=== PATIENT | male | born 1975 | race Caucasian/White ===

== ENCOUNTER 2021-12-03 15:53 | Outpatient (CLI) | payer OTHER, SELFPAY ==
--- OUTSIDE RECORDS SUMMARY | 2021-12-03 15:58 | XMS_ITS | Encounter Summary ---
:1975 Author Organization [facility] Address [address] [place] [address] Care Team Providers Name Role Phone Jerrell Beckwith MD Primary Care Provider Unavailable Reason for Visit Reason Comments Routine Eye Exam PRISCILA 08/29 . Patient states reading and things up close is alittle more blurry. Patient states comfort is good. Patient is aware that [id number] is discon tinued in August. Would like a refit. Contact Lens $50 Encounter Details Date Type Department Care Team Description 02/04/2011 Office Visit [facility] Fredis Houston, Examination of eyes and visi on (Primary Dx); [address] OD Myopia; [place] [address] Astigmatism, unspecified [phone] Social History Tobacco Use Types Packs/Day Years Used Date Smoking Tobacco: Former Cigarettes 1 5 Quit : 07/21/1997 Smokeless Tobacco: Never Alcohol Use Standard Drinks/Week Comments Yes 0 (1 standard drink = 0.6 oz pure alcoho l) on occasion Sex Assigned at Date Recorded Not on file documented as of this encounter Progress Notes Fredis Houston, OD - 02/04/2011 8:41 AM CST HPI Chief Complaint Patient presents with ??? Routine Eye Exam PRISCILA 08/29 . Patient states reading and things up close is alittle more blurry. Patient states comfort is good. Patient is aware that [id number] is discontinued in August. Would like a refit. ??? Contact Lens $50 History Reviewed Assessment Myopia, astifmatism Plan Spectacle Prescription given. No contact lens order today. Patient may purchase contacts elsewhere Return to clinic in 2 year(s) for a contact lens evaluation and a full exam. Fredis Houston, BREN ERY CLERK CHECKING documented in this encounter Plan of Treatment Not on filedocumented as of this encounter Visit Diagnoses Diagnosis Examination of eyes and vision - Primary Myopia Astigmatism, unspecified documented in this encounter Care Teams Open Hearth Furnace Laborer Relationship Specialty Start Date End Date Jerrell Beckwith MD PCP - General 08/27/09 1 documented as of this encounter
--- OUTSIDE RECORDS SUMMARY | 2021-12-03 15:58 | XMS_ITS | Encounter Summary ---
:1975 Author Organization [facility] Address [address] [place] [address] Care Team Providers Name Role Phone Unassigned, Provider Primary Care Provider Unavailable Reason for Visit Reason Onset Date Comments LAB RESULTS 04/16/2007 Encounter Details Date Type Department Care Team Description 04/16/2007 Telephone Careline Lang Avilez CURRENCY COUNTER RESULTS [address] [place], [place] [address] Social History Tobacco Use Types Packs/Day Years Used Date Smoking Tobacco: Former Cigarettes 1 5 Quit : 07/21/1997 Alcohol Use Standard Drinks/Week Comments Yes 0 (1 standard drink = 0.6 oz pure alcoho l) on occasion Sex Assigned at Date Recorded Not on file documented as of this encounter Nursing Notes Lang Avilez - 04/16/2007 4:17 PM CST Pt calling for mumps results. Nothing available in chart yet. Will call to clinic tomorrow. Lang Avilez RN RONMENTAL HEALTH AIDE documented in this encounter Plan of Treatment Not on filedocumented as of this encounter Visit Diagnoses Not on filedocumented in this encounter Care Teams Public Health Sanitarian Relationship Specialty Start Date End Date Unassigned, Provider PCP - General 02/11/06 08/26/[address] [place] [id number] documented as of this encounter
--- OUTSIDE RECORDS SUMMARY | 2021-12-03 15:58 | XMS_ITS | Encounter Summary ---
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 [address] [place] [address] Social History Tobacco Use Types Packs/Day Years Used Date Smoking Tobacco: Former Cigarettes 1 5 Quit : 07/21/1997 Alcohol Use Standard Drinks/Week Comments Yes 0 (1 standard drink = 0.6 oz pure alcoho l) on occasion Sex Assigned at Date Recorded Not on file documented as of this encounter Last Filed Vital Signs Vital Sign Reading Time Taken Comments Blood Pressure 124/80 09/05/2009 2:25 PM CDT Pulse 90 09/05/2009 2:25 PM CDT Temperature 36.4 ??C (97.6 ??F) 09/05/2009 2:25 PM CDT Respiratory Rate 16 09/05/2009 2:25 PM CDT Oxygen Saturation - - Inhaled Oxygen Concentration - - Weight 151.5 kg (334 lb) 09/05/2009 2:25 PM CDT Height 180.3 cm (5' 11) 09/05/2009 2:25 PM CDT Body Mass Index 46.58 09/05/2009 2:25 PM CDT documented in this encounter Progress Notes Jerrell Beckwith - 09/05/2009 3:01 PM CDT SUBJECTIVE: This patient presents for RHM. Concerns: 34-year-old man comes in for routine health maintenance. He is having no concerns. Past Medical History Diagnosis Date ??? Benign Neoplasm of Skin, Site Unspecified No current outpatient prescriptions on file. Allergies as of 09/05/2009 ??? (No Known Allergies) Past Surgical History Procedure Date ??? Appendectomy 1990 Family History Problem Relation ??? Alcohol/Drug Abuse Father ??? Cataract Maternal Grandmother ??? Diabetes, Type II Maternal Grandfather ??? Glaucoma Mother ??? Obesity Mother History Social History ??? Marital Status: Spouse Name: N/A Number of Children: N/A ??? Years of Education: N/A Occupational History ??? [employer] Social History Main Topics ??? Tobacco Use: Quit -- 1.0 packs/day for 5 years Quit date: 07/21/1997 ??? Alcohol Use: Yes on occasion ??? Drug Use: No marijuana ??? Sexually Active: Yes -- Female partner(s) Other Topics Concern ??? No ??? Blood Transfusions No ??? Caffeine No 2 servings/day ??? Occupational Exposure No ??? Hobby Hazard No ??? Sleep Concern No ??? Stress Concern No ??? Weight Concern Yes ??? Diet No ??? Back Care No ??? Exercise Yes play organized sports ??? Seat Belt Yes ??? Self Exams No Social History Narrative cholesterol:12 Review of Systems Skin: negative Eyes: glasses or contacts Ears/Nose/Throat: negative Respiratory: negative Cardiovascular: negative Gastrointestinal: negative Genitourinary: negative Musculoskeletal: negative Neurologic: negative Psychiatric: negative Hematologic/Lymphatic/Immunologic: negative Endocrine: negative CHOLESTEROL (mg/dl) Date Value 09/02/09 8:00 AM 209* HDL (mg/dl) Date Value 09/02/09 8:00 AM 37* LDL, CALC. (mg/dl) Date Value 09/02/09 8:00 AM 134* TRIGLYCERIDE (mg/dl) Date Value 09/02/09 8:00 AM 189* 01/26/1999 210 * OBJECTIVE: General appearance - stated age, healthy, alert, in no distress BP 124/80 Pulse 90 Temp(Src) 97.6 ??F (36.4 ??C) (Oral) Resp 16 Ht 5' 11 (1.803 m) Wt 334lb (151.501 kg) Skin: Skin color, texture, turgor normal. No rashes or lesions. Lymph Nodes: WNL Head: Normocephalic. No masses, lesions, tenderness or abnormalities Eyes: conjunctivae/corneas clear. PERRL, EOM's intact. Fundi benign Ears: External ears normal. Canals clear. TM's normal. Nose: negative Throat: Lips, mucosa, and tongue normal. Teeth and gums normal. Neck: Neck supple. No adenopathy. Thyroid symmetric, normal size. Heart: PMI normal. No lifts, heaves, or thrills. RRR. No murmurs, clicks or rubs Peripheral pulses: negative Lungs: Clear to auscultation without rales or rhonchi Breasts: negative Abdomen: Abdomen soft, non-tender without masses or organomegaly Back: Back symmetric, no curvature. ROM normal. No CVA tenderness. Extremities: Extremities normal. No deformities, edema, or skin discoloration Neurologic: Gait normal. Reflexes normal and symmetric. Sensation grossly intact. Genitalia: Normal male genitalia No inguinal hernia. Assessment: 1. Routine Health Maintenance 2. morbid obesity PLAN: See Orders and/or Patient instructions We talked about a low cholesterol diet as his numbers are slightly elevated. I encouraged dietary discretion and weight loss Jerrell Beckwith MD documented in this encounter Plan of Treatment Not on filedocumented as of this encounter Visit Diagnoses Diagnosis Routine general medical examination at [facility] facility - Primary Routine general medical examination at [facility] Obesity, morbid ([facility]) Morbid obesity documented in this encounter Care Teams Agency Service Representative Relationship Specialty Start Date End Date Jerrell Beckwith MD PCP - General 08/27/09 1 documented as of this encounter
--- OUTSIDE RECORDS SUMMARY | 2021-12-03 15:58 | XMS_ITS | Encounter Summary ---
:1975 Author Organization [facility] Address [address] [place] [address] Care Team Providers Name Role Phone Unassigned, Provider Primary Care Provider Unavailable Reason for Visit Reason Comments INGROWN NAIL Right 1st ingrown toenail Encounter Details Date Type Department Care Team Description 05/13/2009 [facility] Visit [facility] Paredes Nail (Primary Dx); [facility] DP M Pain in Soft Tissues of Limb Surgery [address] [place] [phone] Social History Tobacco Use Types Packs/Day Years Used Date Smoking Tobacco: Former Cigarettes 1 5 Quit : 07/21/1997 Alcohol Use Standard Drinks/Week Comments Yes 0 (1 standard drink = 0.6 oz pure alcoho l) on occasion Sex Assigned at Date Recorded Not on file documented as of this encounter Last Filed Vital Signs Vital Sign Reading Time Taken Comments Blood Pressure 144/99 05/13/2009 2:35 PM CDT Pulse 98 05/13/2009 2:35 PM CDT Temperature 36.6 ??C (97.8 ??F) 05/13/2009 2:35 PM CDT Respiratory Rate - - Oxygen Saturation - - Inhaled Oxygen Concentration - - Weight - - Height - - Body Mass Index - - documented in this encounter Patient Instructions Patient InstructionsLaStephanie aaron CMA - 05/13/2009 2:55 PM CDT INGROWN TOENAIL POSTOPERATIVE INSTRUCTIONS (Nail avulsion or chemical matrixectomy) Go directly home and elevate the affected foot on one or two pillows for the remainder of the day/evening. Your toe may stay numb for the next 2-8 hours. Take Tylenol, ibuprofen or another anti-inflammatory as needed for pain. Take antibiotic if that has been prescribed. Take the entire prescribed antibiotic even if your symptoms have improved. Keep dressing dry and intact the day of the procedure. The morning after the procedure, remove entire dressing and soak/wash the affected area in warm water (you may add Epsom salt) for 5 to 10 minutes. Do this twice a day (you may count showering/bathing as one soak). After soaks, pat the area dry and then allow to air-dry for a few minutes. Apply (antibiotic ointment - betadine - amerigel - nothing) to the area and cover with 2 X 2 gauze and paper tape. Do not use Band-Aids. May walk and pursue everyday activities as tolerated with either an open toe shoe or cut-out shoe asneeded. May wear regular shoes if no pain is noted. Watch for any signs and symptoms of infection such as: redness, red streaks going up the foot/leg, swelling, pus or foul odor. If you have any problems or questions, please call the foot and ankle / podiatry department. For more information on your condition, please visit these accredited websites: [employer] http://www.acfas.org [employer] http://www.apma.org/ documented in this encounter Progress Notes Stephanie Flores CMA - 05/13/2009 3:49 PM CDT Addended by: STEPHANIE CARPENTER on: 05/13/2009 Modules accepted: Orders Rg Paredes - 05/13/2009 3:39 PM CDT HPI: The patient is a 34-year-old gentleman who presents to the podiatry clinic complaining of an ingrowntoenail on the lateral border of the right big toe. Problem is been going on three or four years(2005) on and off. Describes the pain as sharp and throbbing. Rates pain 4/10. Pain is worse when he stubs it. Pain lasts a few minutes. He is tried cleaning the area with alcohol and triple antibiotic ointment. The patient's allergies, medications, past medical history, past surgical history, family medical history and social history have been reviewed. Appendectomy. He does not smoke tobacco or use recreational drugs. Couple of alcoholic drinks per week. Exercising by doing pushups sit-ups on and off over the years. He plays with his kids for exercise. The patient's 10 point review of systems was negative for fever, night sweats, chills, nausea, vomiting, blurry vision, double vision, dizziness, decreased appetite, ringing in ears, bloody nose, hoarseness, chest pain, shortness of breath, swelling, coughing, wheezing, abdominal pain, painful breathing, numbness, diarrhea, constipation, painful urination, urgency to urinate, incontinence, tingling, weakness, fatigue, knee pain, hip pain, back pain, rashes, abrasions, lacerations, bruising and unintentional weight loss. PHYSICAL EXAM: Patient was alert and oriented x3. His very pleasant and in no apparent distress. He is overweight but appeared well. DP and PT pulses were palpable bilaterally. Skin temperature is warm to warm proximal to distal. Skin texture and turgor were good bilaterally. Light touch sensation was intact bilaterally. Strength and range of motion within normal limits and equal bilaterally. Hyperkeratotic lesionsand cracking of the skin plantar aspect bilateral feet. Upon aspect of the lateral border of the right hallux toenail, the nail is incurvated and ingrowing into the skin. There is pain with palpation. There is dry drainage. There is mild erythema and trace edema. No malodor, no pus. Filed Vitals: 05/13/2009 2:35 PM BP: 144/99 Pulse: 98 Temp: 97.8 ??F (36.6 ??C) TempSrc: Oral PainSc: Four (4) ASSESSMENT: #1. Onychocryptosis lateral border right hallux #2. Diffuse hyperkeratosis plantar aspect bilateral feet PLAN: 1. The clinical findings were discussed in detail with the patient as well as the etiology, prognosis and treatment options. Recommendations at this time are for a partial chemical matrixectomy on the lateral border right hallux. The patient does have a chronic history of ingrown toenails, so do feel a chemical matrixectomy is needed at this time. 2. Patient agreed with the treatment recommendation, therefore the right hallux was anesthetized using equal parts 2% lidocaine plain mixed with .5% bupivicaine plain for a total of 6 cc's. The right hallux was prepped with betadine and using a small spatula, the lateral border right hallux toenail was freed from the surrounding skin and nail bed and then an burundian anvil was used to split the toenail, a straight hemostat was then clamped to the offending toenail and it was removed in toto. The areawas then inspected and found to be free of any remaining nail spicule. Phenol was then applied with cotton-tip applicators, 3 applications for 30 seconds each and then toe was flushed with alcohol. Thetoe was then dressed with silvadene cream, xerform gauze, 2 x 2 gauze and a coban wrap. 3. The patient tolerated the procedure well and was given both written and verbal instructions including but not limited to: keeping the dressing on for the remainder of today and then removing the dressing tomorrow morning and beginning 5 minute soaks once per day for the next 2 weeks. They should cover the toe with a small amount of antibiotic ointment and gauze for the next 2 weeks. Do not use band-aids as this will keep it too moist. The patient should monitor the toe for signs of infection suchas redness, swelling, pus or odor or if they experience fever, chills, nausea or vomiting. If they should notice any of the above, they should return to clinic right away. The patient may wear closed-toe shoes as tolerated. The patient should try to elevate the foot when seated and may take over the counter tylenol as needed if they experience pain. 4. The patient will return to clinic in 2 weeks. The patient voiced understanding of the above recommendations and had their questions answered. documented in this encounter Plan of Treatment Not on filedocumented as of this encounter Visit Diagnoses Diagnosis Ingrowing nail - Primary Pain in limb documented in this encounter Care Teams Qualification Engineer Relationship Specialty Start Date End Date Unassigned, Provider PCP - General 02/11/06 08/26/09 [address] [place] [address] documented as of this encounter
--- OUTSIDE RECORDS SUMMARY | 2021-12-03 15:58 | XMS_ITS | Encounter Summary ---
:1975 [facility] Address [address] [place] [address] Care Team Providers Name Role Phone Jerrell Shoemaker MD Primary Care Provider Unavailable Reason for Visit Reason Onset Date Comments RESULTS, TEST 01/31/2013 Encounter Details Date Type Department Care Team Description 01/31/2013 Telephone [facility] Khushbu Ansari LPN RESULTS, TEST Practice [facility] [address] [address] [id number] (work) [phone] Social History Tobacco Use Types Packs/Day Years Used Date Smoking Tobacco: Former Cigarettes 1 5 Quit : 07/21/1997 Smokeless Tobacco: Never Alcohol Use Standard Drinks/Week Comments Yes 0 (1 standard drink = 0.6 oz pure alcoho l) on occasion Sex Assigned at Date Recorded Not on file documented as of this encounter Nursing Notes Khushbu Burns LPN - 01/31/2013 10:06 AM CST Contacted as per provider instructions.Results were also [facility] NG IN LINE FEEDER Khushbu Burns LPN - 01/31/2013 10:06 AM CST Message copied by KHUSHBU BURNS on TueJan 31, 2013 10:06 AM ------ Message from: JERRELL SHOEMAKER Created: TueJan 30, 2013 5:21 PM Your Vitamin D level is low. Supplementing the Vitamin D may increase your energy level. I would like you to take 05509 units of vitamin D once a week for 12 weeks. We can recheck your level after that. Other results look fine. ------ NG IN LINE FEEDER documented in this encounter Plan of Treatment Not on filedocumented as of this encounter Visit Diagnoses Not on filedocumented in this encounter Care Teams Formulator Relationship Specialty Start Date End Date Jerrell Shoemaker MD PCP - General 08/27/09 1 documented as of this encounter
--- OUTSIDE RECORDS SUMMARY | 2021-12-03 15:58 | XMS_ITS | Encounter Summary ---
:1975 Author [facility] Address [address] [place] [address] Care Team Providers Name Role Phone Jerrell Beckwith MD Primary Care Provider Unavailable Reason for Visit Reason Onset Date Comments Ear Pain 08/18/2010 Encounter Details Date Type Department Care Team Description 08/18/2010 Telephone Careline Alicia Carlos RN Ear Pain [address] [place], [place] [address] [phone] [place] [address] Social History Tobacco Use Types Packs/Day Years Used Date Smoking Tobacco: Former Cigarettes 1 5 Quit : 07/21/1997 Smokeless Tobacco: Never Alcohol Use Standard Drinks/Week Comments Yes 0 (1 standard drink = 0.6 oz pure alcoho l) on occasion Sex Assigned at Date Recorded Not on file documented as of this encounter Nursing Notes Peggy Carpio RN - 08/18/2010 10:03 AM CDT Returned call to pt Had stuffiness in the ears last week when he had a cold Today started with right ear pain No drainage, fever, external swelling or redness No hx of wax impaction Had some improvement with Ibuprofen this morning but ear is still painful TRIAGE REFERENCE: EAR PAIN - ADULT CNG (c) 2009 STAT SYMPTOMS: none PMH: Patient Active Problem List Diagnoses Code ??? Obesity, Morbid 278.01C CURRENT MEDICATIONS: No current outpatient prescriptions on file. MEDICATION ALLERGIES: No Known Allergies HOME TREATMENT: OTC pain meds PRN - follow package dosage guidelines Cold compress for 20min out of an hour PRN Don't insert anything into the ears - no Qtips or other objects Don't flush with ears water or any other fluids PLAN: Advised clinic appt for eval. Also discussed UC as option for eval if no clinic appts available. Reviewed home treatments described above. Encouraged to call back anytime with any questions, concerns, changes in symptoms. Pt/caller verbalized understanding of recommendations, denies further questions and is agreeable to plan. Call transferred to appt ctr. Peggy Carpio RN Alicia Carlos RN - 08/18/2010 10:00 AM CDT Pt calling, would like to speak to a nurse about his Right ear before making an appt. A nurse will call you back within the next hour. If you have not heard from a nurse, please feel free to call us back at [phone] and state that you are waiting for a callback. documented in this encounter Plan of Treatment Not on filedocumented as of this encounter Visit Diagnoses Not on filedocumented in this encounter Care Teams Data Entry Clerk Relationship Specialty Start Date End Date Jerrell Beckwith MD PCP - General 08/27/09 1 documented as of this encounter
--- OUTSIDE RECORDS SUMMARY | 2021-12-03 15:58 | XMS_ITS | Encounter Summary ---
:1975 Author Organization [facility] Address [address] [place] [address] Care Team Providers Name Role Phone Jerrell Beckwith MD Primary Care Provider Unavailable Reason for Visit Reason Comments NUMBNESS TINGLING SWELLING, FACE Encounter Details Date Type Department Care Team Description 01/12/2019 Nurse Triage Careline Unassigned, NUMBNESS; [place]; [address] Provider SWELLING, [place], [place] [address] [place] [address] [place] [address] Social History Tobacco Use Types Packs/Day Years Used Date Smoking Tobacco: Former Cigarettes 1 5 Quit : 07/21/1997 Smokeless Tobacco: Never Alcohol Use Standard Drinks/Week Comments Yes 0 (1 standard drink = 0.6 oz pure alcoho l) on occasion Sex Assigned at Date Recorded Not on file documented as of this encounter Nursing Notes Janet Vick RN - 01/12/2019 2:31 PM CST Reason for Disposition ??? [1] Numbness (i.e., loss of sensation) of the face, arm / hand, or leg / foot on one side of thebody AND [2] sudden onset AND [3] brief (now gone) Protocols used: NEUROLOGIC [id number] ESTATE TEACHER Janet Vick RN - 01/12/2019 2:25 PM CST direct transfer from medical receptionist medical assistant Verified patient by first and last name and date of , as well as phone Concern:Pt states a few weeks ago, observed numbness in left cheek and near left ear, left arm/elbow became worse, and observed spots on shoulders pt denies weakness pt denies drooping of face spouse states left side of face is swelled normal skin tone spouse denies confusion, slurred speech PT states intermittent -- pt states is more intense now compared to 1 wk ago pt states lasts a few minutes Pt states when finished urinating, feels like is dribbling after finished. Pt denies pain with urination PMH: Patient Active Problem List Diagnosis ??? Vitamin D deficiency (HR) ESTATE TEACHER Agustina Santamaria - 01/12/2019 2:23 PM CST Verified patient identity using three identifiers: Yes Caller's relationship to patient: Self At which care system or clinic is the patient normally seen? Other (Clinic Name) [facility] Symptoms Describe the reason for call/symptoms (include location and duration if applicable): Left side of face numbness and Tingling, some in elbow and fingertips. Face looks a little swollen on left side. Plan:Caller transferred directly to CareLine nurse. ESTATE TEACHER documented in this encounter Plan of Treatment Not on filedocumented as of this encounter Visit Diagnoses Not on filedocumented in this encounter Care Teams Wheel Tuner Relationship Specialty Start Date End Date Jerrell Beckwith MD PCP - General 08/27/09 1 documented as of this encounter
--- OUTSIDE RECORDS SUMMARY | 2021-12-03 15:58 | XMS_ITS | Encounter Summary ---
:1975 Author Organization [facility] Address [address] [place] [address] Care Team Providers Name Role Phone Jerrell Beckwith MD Primary Care Provider Unavailable Reason for Visit Reason Comments EARACHE Cirilo CONGESTION, SINUS Encounter Details Date Type Department Care Team Description 08/18/2010 Office Visit [place] Ann Sharp MD Al lergic rhinitis (Primary Dx); Internal Medicine Impacted cerumen; [address] [place] [address] Social History Tobacco Use Types [...] Sign Reading Time Taken Comments Blood Pressure 140/92 08/18/2010 2:47 PM CDT Pulse 104 08/18/2010 2:47 PM CDT Temperature 37.1 ??C (98.7 ??F) 08/18/2010 2:47 PM CDT Respiratory Rate - - Oxygen Saturation - - Inhaled Oxygen Concentration - - Weight 154.2 kg (340 lb) 08/18/2010 2:47 PM CDT Height 180.3 cm (5' 11) 08/18/2010 2:47 PM CDT Body Mass Index 47.42 08/18/2010 2:47 PM CDT documented in this encounter Progress Notes Ann Sharp MD - 08/18/2010 3:05 PM CDT SUBJECTIVE: This 35-year-old man has had intermittent nasal congestion and some sneezing also spurring. He has been taking when necessary Claritin without much improvement. He occasionally notes coughing and wheezing as well but has never been diagnosed with hayfever or asthma. He is also putting on weight and this is resulted in his blood pressure raising. Today he rolled over in bed and felt some right ear pain. He had been to the [place] over the weekend and had been spending a lot of time in the water there. OBJECTIVE: BP 140/92 Pulse 104 Temp 98.7 ??F (37.1 ??C) Ht 5' 11 (1.803 m) Wt 340 lb (154.223 kg) BMI 47.42 kg/m2 Cooperative obese white male no acute distress. HEENT exam shows ear wax present on the right the was washed out. The canal itself is irritated. Neck exam is normal lungs are clear cardiac exam revealed S1-S2 without gallop or murmur. ASSESSMENT: Allergic rhinitis Earwax elevated blood pressure without diagnosis of hypertension Otitis externa. PLAN: Flonase nasal spray two puffs in each nostril daily. Cortisporin drops 3 times a day for five days for his right ear. Repeat blood pressure within the next couple months. I encouraged him to lose weight. documented in this encounter Nursing Notes 08/18/2010 2:40 PM CDT >> NARA Becker Aug 18, 2010 3:10 PM S Claudio Akhtar presents to have his ear(s) washed. States they have been using ear wax softening agent No. O Cerumen observed in right ear canal(s). A Ear assesment done by Ann Sharp M.D. before and after the ear wash. Cerumen impaction. (policy note: ear assessment must be done pre/post ear wash by RN or Provider.) P Ear wash ordered by provider Ann hSarp M.D. . Right ear lavaged with 240 mL of tap water. all of the cerumen was removed. Thelma Wooten LPN documented in this encounter Plan of Treatment Not on filedocumented as of this encounter Visit Diagnoses Diagnosis Allergic rhinitis - Primary Allergic rhinitis, cause unspecified Impacted cerumen Otitis externa Infective otitis externa, unspecified documented in this encounter Care Teams Automotive Technician Instructor Relationship Specialty Start Date End Date Jerrell Beckwith MD PCP - General 08/27/09 1 documented as of this encounter
--- OUTSIDE RECORDS SUMMARY | 2021-12-03 15:58 | XMS_ITS | Encounter Summary ---
:1975 Author Organization [facility] Address [address] [place] [address] Care Team Providers Name Role Phone Unassigned, Provider Primary Care Provider Unavailable Reason for Visit Reason Onset Date Comments LAB RESULTS 04/24/2007 Encounter Details Date Type Department Care Team Description 04/24/2007 Telephone Jarrell Family Unass igned, Provider LAB RESULTS Practice [address] [address] [place] [address] Social History Tobacco Use Types Packs/Day Years Used Date Smoking Tobacco: Former Cigarettes 1 5 Quit : 07/21/1997 Alcohol Use Standard Drinks/Week Comments Yes 0 (1 standard drink = 0.6 oz pure alcoho l) on occasion Sex Assigned at Date Recorded Not on file documented as of this encounter Nursing Notes Marcia Mcginnis - 04/24/2007 5:00 PM CST Virus culture report collected 04/14/07 indicates Influenza Type A. Claudio informed of this. He is feeling back to normal. 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
--- OUTSIDE RECORDS SUMMARY | 2021-12-03 15:58 | XMS_ITS | Encounter Summary ---
:1975 Author Organization [facility] Address [address] [place] [address] Care Team Providers Name Role Phone Jerrell Beckwith MD Primary Care Provider Unavailable Encounter Details Date Type Department Care Team Description 09/02/2009 Orders Only [place] Routine Physical Laboratory Examination [address] [place] [address] Social History Tobacco Use Types Packs/Day Years Used Date Smoking Tobacco: Former Cigarettes 1 5 Quit : 07/21/1997 Alcohol Use Standard Drinks/Week Comments Yes 0 (1 standard drink = 0.6 oz pure alcoho l) on occasion Sex Assigned at Date Recorded Not on file documented as of this encounter Progress Notes Jerrell Beckwith - 09/02/2009 1:50 PM CDT Quick Note: Your lipid panel results are all mildly elevated. I do follow a low cholesterol/low fat diet and stay physically active. documented in this encounter Plan of Treatment Not on filedocumented as of this encounter Procedures Procedure Name Priority Date/Time Associated Diagnosis Comme nts LIPID PANEL AND Routine 09/02/2009 8:00 AM Routine Physical Re sults for this DIRECT LDL(IF CDT Examination procedure are in NEEDED) the results section. documented in this encounter Results (ABNORMAL) LIPID PANEL AND DIRECT LDL(IF NEEDED) (09/02/2009 8:00 AM CDT) [facility] Method Time Signature Cholesterol 209 (H) 0 - 199 [facility] mg/dl Triglyceride 189 (H) 0 - 149 [facility] mg/dl HDL 37 (L) >40 mg/dl [facility] LDL, Calc. 134 (H) 0 - 129 [facility] mg/dl Hours Fasting 12 hours [facility] Specimen Anatomical Collection Method Collection Time Receive d Time (Source) Location / / Volume Laterality 09/02/2009 8:00 AM 0 8:04 CDT AM CDT Jerrell Beckwith MD LAB_1 Performing Organization Address City/State/ZIP Code Phon e Number [facility] [phone] [facility] [address] [phone] documented in this encounter Visit Diagnoses Diagnosis Routine physical examination Routine general medical examination at a health care facility documented in this encounter Care Teams Database Software Technician Relationship Specialty Start Date End Date Jerrell Beckwith MD PCP - General 08/27/09 1 documented as of this encounter
--- OUTSIDE RECORDS SUMMARY | 2021-12-03 15:58 | XMS_ITS | Clinical Summary ---
:1975 Author Organization [facility] Address [address] [place] [address] Care Team Providers Name Role Phone Unavailable Primary Care Provider Unavailable Source Comments You are receiving this document as you are listed as the primary care provider,follow-up provider, or the patient has been referred to you for consultation.This is in compliance with the Medicare and Medicaid EHR Incentive Program,which states Providers who transition their patient to another setting of careor provider of care or refers their patient to another provider of care shouldprovide summarycare record for each transition of care or referral. [facility] Allergies No known active allergies Medications Medication Sig Dispensed Refills Start Date End Date Status cholecalciferol (VITAMIN Take 2,000 0 Active D) 2000 UNITS tablet Units by mouth daily. Multiple 0 Active Vitamins-Minerals (ONE-A-DAY [facility] OR) Active Problems Problem Noted Date Vitamin D deficiency 01/30/2013 Immunizations Name Administration Dates Next Due Influenza IIV4 (Quadrivalent) 0.5mL 12/28/2016, 01/30/2013 (00703) Td 02/20/1993 Td (7+ yrs) 09/29/2004 Tdap 01/30/2013 Varicella 01/27/1999 (Deferred: Immune by Disease) Family History Medical History Relation Name Comments Alcohol/Drug Abuse Father Glaucoma Mother Pre-glaucoma Obesity Mother Bipolar Disorder Maternal Aunt Diabetes, Type II Maternal Grandfather Cataract Maternal Grandmother Relation Name Status Comments Father Alive BY-1957 Mother Alive BY-1957 Brother Alive BY-1986 Daughter Alive Maternal Aunt Maternal Grandfather Alive BY-s; AODM Maternal Grandmother Alive BY-1910's Paternal Grandfather Alive unknown Paternal Grandmother Alive Sister Alive BY-1984 Son Alive Social History Tobacco Use Types Packs/Day Years Used Date Smoking Tobacco: Former Cigarettes 1 5 Quit : 07/21/1997 Smokeless Tobacco: Never Alcohol Use Standard Drinks/Week Comments Yes 0 (1 standard drink = 0.6 oz pure alcoho l) on occasion Sex Assigned at Date Recorded Not on file Last Filed Vital Signs Vital Sign Reading Time Taken Comments Blood Pressure 144/98 12/28/2016 10:44 AM OCCUPATIONAL THERAPY INSTRUCTOR Pulse 77 12/28/2016 10:44 AM OCCUPATIONAL THERAPY INSTRUCTOR Temperature 36.6 ??C (97.9 ??F) 12/28/2016 10:44 AM OCCUPATIONAL THERAPY INSTRUCTOR Respiratory Rate 14 01/15/2014 10:13 AM OCCUPATIONAL THERAPY INSTRUCTOR Oxygen Saturation - - Inhaled Oxygen Concentration - - Weight 154 kg (339 lb 6.4 oz) 12/28/2016 10:44 AM OCCUPATIONAL THERAPY INSTRUCTOR Height 181.6 cm (5' 11.5) 12/28/2016 10:44 AM OCCUPATIONAL THERAPY INSTRUCTOR Body Mass Index 46.68 12/28/2016 10:44 AM OCCUPATIONAL THERAPY INSTRUCTOR Plan of Treatment Health Maintenance Due Date Last Done Comments Hep C Screening (Preventive 1975 Services) COVID-19 Vaccine (#1) 1975 HIV Screening (Preventive 1993 Services) Adult Preventive Visit 12/28/2018 12/28/2016, 01/30/2013, 09/05/2009, Additional history exists Influenza (#1) 2021 12/28/2016, 01/30/2013 Cholesterol 12/28/2021 12/28/2016, 01/30/2013, 09/02/2009, Additional history exists DTaP/Tdap/Td (3 - Tdap) 01/30/2023 01/30/2013, 09/29/2004, 02/20/1993 Zoster/Shingles (1 of 2) 05/11/2027 HPV Vaccine Aged Out No longer eligib le based on patient 's age to complete this topic HepA Aged Out No longer eligib le based on patient 's age to complete this topic Hib Aged Out No longer eligib le based on patient 's age to complete this topic IPV (Polio) Aged Out No longer eligib le based on patient 's age to complete this topic MCV4 Aged Out No longer eligib le based on patient 's age to complete this topic Pneumococcal Aged Out No longer eligib le based on patient 's age to complete this topic Insurance Payer Benefit Plan / Subscriber ID Effective Dates Phone Addre ss Type Group [facility] [employer] SELF INSURED [id number] 2013-Present Commercial 5 [id number] 200[address] (Home) W [phone] [place] (Work) [id number] Advance Directives Latest Code Status on File Code Status Date Activated Date Inactivated Comments 09/29/2004 3:51 PM 09/29/2004 3:51 PM
--- OUTSIDE RECORDS SUMMARY | 2021-12-03 15:58 | XMS_ITS | Encounter Summary ---
:1975 Author Organization [facility] Address [address] [place] [address] Care Team Providers Name Role Phone Jerrell Beckwith MD Primary Care Provider Unavailable Encounter Details Date Type Department Care Team Description 12/28/2016 Lab Visit [facility] Routine health maintenance [address] [place], [place] [address] Social History Tobacco Use Types Packs/Day Years Used Date Smoking Tobacco: Former Cigarettes 1 5 Quit : 07/21/1997 Smokeless Tobacco: Never Alcohol Use Standard Drinks/Week Comments Yes 0 (1 standard drink = 0.6 oz pure alcoho l) on occasion Sex Assigned at Date Recorded Not on file documented as of this encounter Plan of Treatment Not on filedocumented as of this encounter Procedures Procedure Name Priority Date/Time Associated Diagnosis Comme nts LIPID PANEL AND Routine 12/28/2016 11:13 AM Routine health Res ults for this DIRECT LDL(IF DESCRIPTIVE CATALOG LIBRARIAN maintenance procedure are in NEEDED) the results section. BASIC METABOLIC Routine 12/28/2016 11:13 AM Routine health Res ults for this PANEL DESCRIPTIVE CATALOG LIBRARIAN maintenance procedure are i n the results section. TSH, SENSITIVE Routine 12/28/2016 11:13 AM Routine health Resu lts for this (WITH REFLEX) DESCRIPTIVE CATALOG LIBRARIAN maintenance procedure are in the results section. documented in this encounter Results TSH, SENSITIVE with FT4, FT3 (if needed) (12/28/2016 11:13 AM DESCRIPTIVE CATALOG LIBRARIAN) P athologist Signature TSH, with 1.68 0.30 - [facility] 4.50 [facility] uIU/ml Specimen Anatomical Collection Method Collection Time Receive d Time (Source) Location / / Volume Laterality 12/28/2016:13 12/28/2016 AM DESCRIPTIVE CATALOG LIBRARIAN 11:14 AM DESCRIPTIVE CATALOG LIBRARIAN Narrative [facility] - 12/28/2016 4:[address] Performed at [address] ??[id number] Mirian Ayala MD LAB_1 Performing Organization Address [facility] Phon e Number [facility] [phone] Basic Metabolic Panel (12/28/2016 11:13 AM DESCRIPTIVE CATALOG LIBRARIAN) [facility] Signature Sodium 141 136 - 145 [facility] mmol/L [facility] Potassium 4.4 3.5 - 5.1 [facility] mmol/L [facility] Chloride 102 98 - 109 [facility] mmol/L [facility] CO2 28 20 - 29 [facility] mmol/L [facility] Anion Gap 11 7 - 16 [facility] (calc.) mmol/L [facility] Glucose 85 70 - 180 [facility] mg/dl [facility] Calcium 10.0 8.4 - 10.2 [facility] mg/dl [facility] BUN 14 7 - 26 [facility] mg/dl [facility] Creatinine 0.79 0.73 - [facility] 1.18 mg/dl [facility] GFR, Estimated >60 >60 [facility] ml/min/1.7 [facility] 3m2 GFR, Est., If >60 >60 [facility] Black ml/min/1.7 [facility] 3m2 Specimen Anatomical Collection Method Collection Time Receive d Time (Source) Location / / Volume Laterality 12/28/2016 11:13 12/28/2016 AM DESCRIPTIVE CATALOG LIBRARIAN 11:14 AM DESCRIPTIVE CATALOG LIBRARIAN Narrative [facility] - 12/28/2016 4:[address] Performed at [facility], [address] [place] [address] ??[id number] Mirian Ayala MD LAB_1 Performing Organization Address City/[facility] Phon e Number [facility] [phone] (ABNORMAL) Lipid Panel and Direct LDL(If Needed) (12/28/2016 11:13 AM DESCRIPTIVE CATALOG LIBRARIAN) [facility] Method Time Signature Hours Fasting 12 hours [facility] Cholesterol 218 (H) 0 - 199 [facility] mg/dl [facility] Triglyceride 162 (H) 0 - 149 [facility] mg/dl [facility] HDL 41 >40 mg/dl [facility] LDL, Calc. 145 (H) 0 - 129 [facility] mg/dl [facility] Non HDL Chol, 177 mg/dl [facility] Calc [facility] Specimen Anatomical Collection Method Collection Time Receive d Time (Source) Location / / Volume Laterality 12/28/2016 11:13 12/28/2016 AM DESCRIPTIVE CATALOG LIBRARIAN 11:14 AM DESCRIPTIVE CATALOG LIBRARIAN Narrative [facility] - 12/28/2016 4:[address] Performed at [facility], [address] [place] [address] ??[id number] Mirian Ayala MD LAB_1 Performing Organization Address City/State/ZIP Code Phon e Number [facility] [phone] documented in this encounter Visit Diagnoses Diagnosis Routine health maintenance Routine general medical examination at a health care facility documented in this encounter Care Teams Returned Goods Repairer Relationship Specialty Start Date End Date Jerrell Beckwith MD PCP - General 08/27/09 1 documented as of this encounter
--- OUTSIDE RECORDS SUMMARY | 2021-12-03 15:58 | XMS_ITS | Encounter Summary ---
:1975 Author Organization [facility] Address [address] [place] [address] Care Team Providers Name Role Phone Jerrell Beckwith MD Primary Care Provider Unavailable Reason for Referral Consult/Transfer Care (Routine) - Closed Specialty Diagnoses / Procedures Referred By Contact Refer red To Contact Diagnoses Decreased hearing, [place] [address] [place], [place] [address] Referral ID Status Reason Start Date Expiration Date Visits Requ ested Visits Authorized [id number] Closed 12/28/2016 03/29/2018 1 1 Scheduling Instructions Your provider has recommended an appoint ment with [facility]. You may call [phone] to schedule your appoi ntment. If you prefer, a recruiting scheduler will contact you within the next 3 business d ays to assist you in setting up this appointment. We suggest you call your [employer] company about your coverage and benefits for this appointment. Reason for Visit Reason Comments ROUTINE HEALTH MAINTENANCE DEPRESSION Encounter Details Date Type Department Care Team Description 12/28/[address] [facility] Mirian Ayala health maintenance (Primary Dx); Honey Tinajero MD Moderate single current episode of major depressive disorder (HRC); [address] [facility] [address] [facility] Snoring; [place], [place] Decreas ed hearing, unspecified laterality; [phone] [id number] Encounter for immunization [phone] Social History Tobacco Use Types Packs/Day Years [...] Comments Blood Pressure 144/98 12/28/2016 10:44 AM GM Pulse 77 12/28/2016 10:44 AM GM Temperature 36.6 ??C (97.9 ??F) 12/28/2016 10:44 AM GM Respiratory Rate - - Oxygen Saturation - - Inhaled Oxygen Concentration - - Weight 154 kg (339 lb 6.4 oz) 12/28/2016 10:44 AM GM Height 181.6 cm (5' 11.5) 12/28/2016 10:44 AM GM Body Mass Index 46.68 12/28/2016 10:44 AM GM documented in this encounter Progress Notes Mirian Ayala MD - 12/28/2016 10:40 AM CST Subjective: 41-year-old male comes in for routine physical. Has been about three years since he has been in the clinic. He does have some concerns today. He is concerned about depression. Feels that hehas been on somewhat of a downhill slide for the last few years. He is currently not medicated and never has been for depression. Denies any family history of medication for depression although wondersif maybe his mother has some issues. He has noted that his thinks there might be a problem. He started counseling just today. The counselor thought that he needed to come back for future sessions.We talked about his symptoms for quite a while. No motivation, does not enjoy things. Irritable at times. He has early awakening during the night, difficulty going back to sleep. Explained that these were common depression symptoms. However, because we had just met for the first time, I was reluctant to start medication until he had been going to the counselor little longer. He agrees. We will check medically to make sure that there are no physical issues. He also is concerned about chronic snoring. He snores quite loudly. He is fatigued but does not justfall asleep when sitting down. Uncertain if he stops breathing. Thinks that he might have sleep apnea but is uncertain. He is reluctant to sign up for the sleep study. He would like to talk with his first. Also wonders about his hearing. States his family feels like his hearing is decreased. Would like an audiology evaluation. Currently not on any medications. He has had an appendectomy and wisdom teeth extraction. No other hospitalizations or procedures. He is . Two children. 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 Talked about the importance of regular exercise. He is not a smoker. Very occasional alcohol. Objective:BP (!) 144/98 Pulse 77 Temp 97.9 ??F (36.6 ??C) (Oral) Ht 5' 11.5 (1.816 m) Wt (!) 339 lb 6.4 oz (154 kg) BMI 46.68 kg/m2 He appears well. Pupils equally round and reactive to light. Extra ocular movements are intact. TMs are normal. Oropharynx is clear. Neck is supple with no adenopathy. No thyromegaly. Lungs are clear without wheezing or rhonchi. Heart is regular. I do not hear a murmur. Abdomen is benign. Extremities are normal. Skin is clear. Neuro is intact. Assessment: Physical exam. Symptoms of depression although he is a new patient to me. Reluctant to start medication without further input from the counselor. Hearing decreased. Snoring. Plan: We will check blood work today. He will set up an audiology appointment. Should his statethat she feels he does quit breathing, he will call me in we will put in a referral for a sleep study. He will continue with the counselor. Has an appointment next week. If the counselor feels that he would benefit from medication, he will come back to me to talk about options. Talked about the importance of regular exercise to help with depression symptoms. Good diet and so forth. documented in this encounter Plan of Treatment Scheduled Referrals Name Type Priority Associated Diagnoses Order S chedule Audiology Referral Routine Decreased hearing, Ordered: 12/28/2016 Consult-Adult/Peds unspecified laterality documented as of this encounter Results TSH, SENSITIVE with FT4, FT3 (if needed) (12/28/2016 11:13 AM GM) P athologist Signature TSH, with 1.68 0.30 - [facility] 4.50 [facility] uIU/ml Specimen Anatomical Collection Method Collection Time Receive d Time (Source) Location / / Volume Laterality 12/28/2016 11:13 12/28/2016 AM GM 11:14 AM GM Narrative [facility] - 12/28/2016 4:[address] Performed at [address] ??[id number] Mirian Ayala MD LAB_1 Performing Organization Address City/[facility]/ZIP Code Phon e Number [facility] [phone] Basic Metabolic Panel (12/28/2016 11:13 AM GM) Analysis Performed At Patho logist Time Signature Sodium 141 136 - [...] / Volume Laterality 12/28/2016 11:13 12/28/2016 AM GM 11:14 AM GM Narrative [facility] - 12/28/2016 4:[address] Performed at [facility], [address] [place] [id number] Mirian Ayala MD LAB_1 Performing Organization Address City/[facility]/ZIP Code Phon e Number [facility] [phone] (ABNORMAL) Lipid Panel and Direct LDL(If Needed) (12/28/2016 11:13 AM GM) [facility] gist Method Time Signature Hours Fasting 12 [...] / Volume Laterality 12/28/2016 11:13 12/28/2016 AM GM 11:14 AM GM Narrative [facility] - 12/28/2016 4:[address] Performed at [facility], [address] [place] [address] ??[id number] Mirian Ayala MD LAB_1 Performing Organization Address City/State/ZIP Code Phon e Number [facility] [phone] documented in this encounter Visit Diagnoses Diagnosis Routine health maintenance - Primary Routine general medical examination at a health care facility Moderate single current episode of major depressive disorder (HRC) Snoring Other dyspnea and respiratory abnormalit y Decreased hearing, unspecified lateralit y Encounter for immunization Need for other specified prophylactic va ccination against single bacterial disease Routine health maintenance Routine general medical examination at a health care facility documented in this encounter Care Teams Statistical Clerk Relationship Specialty Start Date End Date Jerrell Beckwith MD PCP - General 08/27/09 1 documented as of this encounter
--- OUTSIDE RECORDS SUMMARY | 2021-12-03 15:58 | XMS_ITS | Encounter Summary ---
:1975 Author Organization [facility] Address [address] [place] [address] Care Team Providers Name Role Phone Jerrell Beckwith MD Primary Care Provider Unavailable Reason for Referral Consult/Transfer Care (Routine) - Closed Specialty Diagnoses / Procedures Referred By Contact Refer red To Contact Diagnoses Malaise and fatigue Jerrell Beckwith MD [address] [place] [address] Referral ID Status Reason Start Date Expiration Date Visits Requ ested Visits Authorized [id number] Closed 01/30/2013 1 1 Scheduling Instructions Your provider has recommended an appoint ment with [facility]. You may call [phone] to critical access hospital edule your appointment. If you prefer, a project controls scheduler will contact you within the de xt 3 business days to assist you in setting up this appointment. ESTATE CONSULTANT Reason for Visit Reason Comments ROUTINE HEALTH MAINTENANCE IMMUNIZATIONS Encounter Details Date Type Department Care Team Description 01/30/2013 [place] Prev entative health care (Primary Dx); weather reporterMD Reed; [address] Obesity, [place] [address] Social History Tobacco Use Types Packs/Day Years [...] Sign Reading Time Taken Comments Blood Pressure 128/86 01/30/2013 8:14 AM REAL ESTATE CONSULTANT Pulse 76 01/30/2013 8:14 AM REAL ESTATE CONSULTANT Temperature 37.1 ??C (98.8 ??F) 01/30/2013 8:14 AM REAL ESTATE CONSULTANT Respiratory Rate 16 01/30/2013 8:14 AM REAL ESTATE CONSULTANT Oxygen Saturation - - Inhaled Oxygen Concentration - - Weight 160.6 kg (354 lb) 01/30/2013 8:14 AM REAL ESTATE CONSULTANT Height 181.6 cm (5' 11.5) 01/30/2013 8:14 AM REAL ESTATE CONSULTANT Body Mass Index 48.68 01/30/2013 8:14 AM REAL ESTATE CONSULTANT documented in this encounter Progress Notes Jerrell Beckwith MD - 01/30/2013 5:21 PM REAL ESTATE CONSULTANT Quick Note: Your Vitamin D level is low. Supplementing the Vitamin D may increase your energy level. I would like [place] to take 60209 units of vitamin D once a week for 12 weeks. We can recheck your level after that. Other results look fine. ESTATE CONSULTANT Jerrell Beckwith MD - 01/30/2013 9:25 AM CST SUBJECTIVE: This patient presents for RHM. Concerns: This 37-year-old man comes in for routine health maintenance. He is morbidly obese but otherwise has been in good general health. Patient does complain of fatigue, not in the mornings but usually by six or 7:00 in the evening. He also has gained weight again this year. He lost a few pounds during the summer but has gained it back and more this winter. He does admit to loud snoring and possibly breathing pauses at night. He denies morning headaches. Past Medical History Diagnosis Date ??? Benign neoplasm of skin, site unspecified No current outpatient prescriptions on file. Allergies as of 01/30/2013 ??? (Not on File) Past Surgical History Procedure Laterality Date ??? Appendectomy 1990 Family History Problem Relation Age of Onset ??? Alcohol/Drug Abuse Father ??? Cataract Maternal Grandmother ??? Diabetes, Type II Maternal Grandfather ??? Glaucoma Mother Pre-glaucoma ??? Obesity Mother History Social History ??? Marital Status: Spouse Name: N/A Number of Children: N/A ??? Years of Education: N/A Occupational History ??? [employer] Social History Main Topics ??? Smoking status: Former Smoker -- 1.00 packs/day for 5 years Types: Cigarettes Quit date: 07/21/1997 ??? Smokeless tobacco: Never Used ??? Alcohol Use: Yes Comment: on occasion ??? Drug Use: No Comment: marijuana ??? Sexually Active: Yes -- Female partner(s) Other Topics Concern ??? Service No ??? Blood Transfusions No ??? Caffeine Concern No 2 servings/day ??? Occupational Exposure No ??? Hobby Hazards No ??? Sleep Concern No ??? Stress Concern No ??? Weight Concern Yes ??? Special Diet No ??? Back Care No ??? Exercise Yes play organized sports ??? Seat Belt Yes ??? Self-Exams No Social History Narrative cholesterol:01-26-99 Review of Systems Skin: negative Eyes: glasses or contacts Ears/Nose/Throat: negative Respiratory: negative Cardiovascular: negative Gastrointestinal: negative Genitourinary: negative Musculoskeletal: negative Neurologic: negative Psychiatric: negative Hematologic/Lymphatic/Immunologic: negative Endocrine: negative CHOLESTEROL (mg/dl) Date Value 09/02/2009 209* HDL (mg/dl) Date Value 09/02/2009 37* LDL, CALC. (mg/dl) Date Value 09/02/2009 134* TRIGLYCERIDE (mg/dl) Date Value 09/02/2009 189* 01/26/1999 210 * OBJECTIVE: General appearance - stated age, healthy, alert, in no distress. Patient is morbidly obese BP 128/86 Pulse 76 Temp(Src) 98.8 ??F (37.1 ??C) (Oral) Resp 16 Ht 5' 11.5 (1.816 m) Wt 354 lb (160.573 kg) BMI 48.69 kg/m2 Skin: Skin color, texture, turgor normal. No [...] symmetric. Sensation grossly intact. Genitalia: Normal male genitalia, No inguinal hernia. Assessment: 1. Routine Health Maintenance 2. morbid obesity 3. fatigue-possibly related to sleep apnea, and certainly not helped by his obesity. Will also checkother lab work. PLAN: See Orders and/or Patient instructions Referred to pulmonary for evaluation and likely sleep study. Labs pending. Jerrell Beckwith MD ESTATE CONSULTANT documented in this encounter Plan of Treatment Scheduled Referrals Name Type Priority Associated Diagnoses [facility] Referral Routine Malaise and fatigue Ordere d: 01/30/2013 CONSULT-ADULT documented as of this encounter Procedures Procedure Name Priority Date/Time Associated Diagnosis Comme nts BASIC METABOLIC Routine 01/30/2013 8:44 AM Malaise and fatigue Results for this PANEL,FASTING REAL ESTATE CONSULTANT procedure are in the results section. LIPID PANEL AND Routine 01/30/2013 8:44 AM Malaise and fatigue Results for this DIRECT LDL(IF REAL ESTATE CONSULTANT procedure are in NEEDED) the results section. VITAMIN D Routine 01/30/2013 8:44 AM Malaise and fatigue Re sults for this 25-HYDROXY, TOTAL REAL ESTATE CONSULTANT procedure are in the results section. COMPLETE BLOOD Routine 01/30/2013 8:44 AM Malaise and fatigue Results for this COUNT-NO DIFF REAL ESTATE CONSULTANT procedure are in the results section. TSH, SENSITIVE Routine 01/30/2013 8:44 AM Malaise and fatigue Results for this (WITH REFLEX) REAL ESTATE CONSULTANT procedure are in the results section. documented in this encounter Results HEMOGRAM/PLTS (01/30/2013 8:44 AM REAL ESTATE CONSULTANT) P athologist Signature WBC 6.7 4.0 - 11.0 [facility] k/ul RBC 5.17 4.5 - 5.9 [facility] M/ul Hemoglobin 15.2 13.5 - 17.5 [facility] g/dl HCT 46.8 41.0 - 53.0 [facility] % MCV 90.5 80 - 100 fl [facility] MCH 29.4 26 - 34 pg [facility] MCHC 32.5 32 - 36 [facility] g/dl RDW 12.8 11.5 - 14.5 [facility] % Platelets 191 150 - 450 [facility] k/ul Specimen Anatomical Collection Method Collection Time Receive d Time (Source) Location / / Volume Laterality 01/30/2013 8:44 AM 3 8:54 REAL ESTATE CONSULTANT AM REAL ESTATE CONSULTANT Narrative [facility] - 01/30/2013 2:[address] Performed at [facility], [address] [place] [address] ??[id number] Jerrell Beckwith MD LAB_1 Performing Organization Address City/[facility]/ZIP Code Phon e Number [facility] [phone] (ABNORMAL) VITAMIN D 25-HYDROXY, TOTAL (V77.99) (01/30/2013 8:44 AM REAL ESTATE CONSULTANT) [facility] gist Method Time Signature Vitamin 14.9 (L) 30.0 - [facility] D,25-OH, Tot 80.0 [facility]ATOR[facility] ng/mL Comment: Deficiency: ??< 20 ng/mL Insufficiency: ??20-29 ng/mL Optimum Level: ??30-80 ng/mL Possible Toxicity: > 80 ng/mL Specimen Anatomical Collection Method Collection Time Receive d Time (Source) Location / / Volume Laterality 01/30/2013 8:44 AM 3 8:54 REAL ESTATE CONSULTANT AM REAL ESTATE CONSULTANT Narrative [facility] - 01/30/2013 3:[address] Performed at [facility] , [address] [place] [id number] Jerrell Beckwith MD LAB_1 Performing Organization Address City/State/ZIP [facility] Phon e Number [facility] [phone] TSH, SENSITIVE (WITH REFLEX)[0191] - [facility] ONLY (01/30/2013 8:44 AM REAL ESTATE CONSULTANT) P athologist Signature TSH, with 1.495 0.300 - [facility] Reflex 5.000 [facility] uIU/ml Specimen Anatomical Collection Method Collection Time Receive d Time (Source) Location / / Volume Laterality 01/30/2013 8:44 AM 3 8:54 REAL ESTATE CONSULTANT AM REAL ESTATE CONSULTANT Narrative [facility] - 01/30/2013 5:[address] Performed at [facility], [address] [place] [address] ??[id number] Jerrell Beckwith MD LAB_1 Performing Organization Address City/[facility] Phon e Number [facility] [phone] (ABNORMAL) LIPID PANEL AND DIRECT LDL(IF NEEDED) (01/30/2013 8:44 AM REAL ESTATE CONSULTANT) [facility] gist Method Time Signature Hours Fasting 12 hours [facility] Cholesterol 189 0 - 199 [facility] mg/dl [facility] Triglyceride 184 (H) 0 - 149 [facility] mg/dl [facility] HDL 38 (L) >40 mg/dl [facility] LDL, Calc. 114 0 - 129 [facility] mg/dl [facility] Non HDL Chol, 151 mg/dl [facility] Calc [facility] Specimen Anatomical Collection Method Collection Time Receive d Time (Source) Location / / Volume Laterality 01/30/2013 8:44 AM 3 8:54 REAL ESTATE CONSULTANT AM REAL ESTATE CONSULTANT Narrative [facility] - 01/30/2013 2:[address] Performed at [facility], [address] [place] [address] ??[id number] Jerrell Beckwith MD LAB_1 Performing Organization Address [facility] Phon e Number [facility] [phone] BASIC METABOLIC PANEL,FASTING (01/30/2013 8:44 AM REAL ESTATE CONSULTANT) Analysis Performed At Patho logist Time Signature BUN 13 7 - 20 [facility] mg/dl [facility] Sodium 142 135 - 145 [facility] mmol/L [facility] Potassium 4.2 3.5 - 5.3 [facility] mmol/L [facility] Chloride 101 95 - 106 [facility] mmol/L [facility] CO2 29 22 - 30 [facility] mmol/L [facility] Glucose 92 70 - 100 [facility] mg/dl [facility] Hours Fasting 12 hours [facility] Creatinine 0.77 0.66 - [facility] 1.25 mg/dl [facility] GFR, Estimated >60.0 >60 [facility] ml/min/1.7 [facility] 3m2 GFR, Est., If >60.0 >60 [facility] Black ml/min/1.7 [facility] 3m2 Calcium 9.2 8.4 - 10.2 [facility] mg/dl [facility] Anion Gap 12 7 - 16 [facility] (calc.) mmol/L [facility] Specimen Anatomical Collection Method Collection Time Receive d Time (Source) Location / / Volume Laterality 01/30/2013 8:44 AM 3 8:54 REAL ESTATE CONSULTANT AM REAL ESTATE CONSULTANT Narrative [facility] - 01/30/2013 2:[address] Performed at [facility], [address] [place] [address] ??[id number] Jerrell Beckwith MD LAB_1 Performing Organization Address City/State/ZIP Code Phon e Number [facility] [phone] documented in this encounter Visit Diagnoses Diagnosis Preventative health care - Primary Routine general medical examination at a health care facility Malaise and fatigue Other malaise and fatigue Obesity, morbid (HRC) Morbid obesity documented in this encounter Care Teams Finished Stock Inspector Relationship Specialty Start Date End Date Jerrell Beckwith MD PCP - General 08/27/09 1 documented as of this encounter
--- OUTSIDE RECORDS SUMMARY | 2021-12-03 15:58 | XMS_ITS | Encounter Summary ---
:1975 Author Organization [facility] Address [address] [place] [address] Care Team Providers Name Role Phone Jerrell Beckwith MD Primary Care Provider Unavailable Encounter Details Date Type Department Care Team Description 01/30/2013 Orders Only [place] Jerrell Beckwith, Daisha Harrington deficiency senior planning analyst (Primary Dx) [address] [place] [address] Social History Tobacco Use Types [...] as of this encounter Visit Diagnoses Diagnosis Vitamin D deficiency (HRC) - Primary Unspecified vitamin D deficiency documented in this encounter Care Teams Deputy Clerk Relationship Specialty Start Date End Date Jerrell Beckwith MD PCP - General 08/27/09 1 documented as of this encounter
--- OUTSIDE RECORDS SUMMARY | 2021-12-03 15:58 | XMS_ITS | Encounter Summary ---
:1975 Author Organization [facility] Address [address] [place] [address] Care Team Providers Name Role Phone Jerrell Beckwith MD Primary Care Provider Unavailable Reason for Visit Reason Onset Date Comments LAB TESTS, NOS 09/01/2009 Encounter Details Date Type Department Care Team Description 09/01/[address] [facility] Jerrell Beckwith MD LAB TESTS, NOS Practice [address] [place] [address] Social History Tobacco Use Types Packs/Day Years Used Date Smoking Tobacco: Former Cigarettes 1 5 Quit : 07/21/1997 Alcohol Use Standard Drinks/Week Comments Yes 0 (1 standard drink = 0.6 oz pure alcoho l) on occasion Sex Assigned at Date Recorded Not on file documented as of this encounter Nursing Notes Marcia Wiley - 09/01/2009 2:36 PM CDT Patient on Lab Only Visit Schedule, no lab orders found in patient's chart. Please review and enter future lab orders or notify the patient that lab work is not needed. Lab Only Visit scheduled for: 09/02/09. Patient is seeing Dr. Beckwith for RHM on 09/05/09. Thank you [facility] Lab documented in this encounter Plan of Treatment Not on filedocumented as of this encounter Results (ABNORMAL) LIPID PANEL AND DIRECT LDL(IF NEEDED) (09/02/2009 8:00 AM CDT) [facility] Time Signature Cholesterol 209 (H) 0 - 199 [facility] mg/dl Triglyceride 189 (H) 0 - 149 [facility] mg/dl HDL 37 (L) >40 mg/dl [facility] LDL, Calc. 134 (H) 0 - 129 [facility] mg/dl Hours Fasting 12 hours [facility] Specimen Anatomical Collection Method Collection Time Receive d Time (Source) Location / / Volume Laterality 09/02/2009 8:00 AM 0 8:04 CDT AM CDT Jerrell Beckwith MD LAB_1 Performing Organization Address City/State/ZIP Code Phon e Number [facility] [phone] [facility] [address] [phone] documented in this encounter Visit Diagnoses Diagnosis Routine physical examination - Primary Routine general medical examination at a health care facility documented in this encounter Care Teams Clamshell Operator Relationship Specialty Start Date End Date Jerrell Beckwith MD PCP - General 08/27/09 1 documented as of this encounter
--- OUTSIDE RECORDS SUMMARY | 2021-12-03 15:58 | XMS_ITS | Encounter Summary ---
:1975 Author Organization [facility] Address [address] [place] [address] Care Team Providers Name Role Phone Unassigned, Provider Primary Care Provider Unavailable Reason for Visit Reason Comments Contact Lens update rx fo rcontacts, no v isual complaints Encounter Details Date Type Department Care Team Description 05/22/2007 Office Visit [facility] Fredis Houston, Examination of Eyes and Visi on (Primary Dx); [address] OD Myopia; [place] [address] Unspecified Astigmatism [phone] Social History Tobacco Use Types Packs/Day Years Used Date Smoking Tobacco: Former Cigarettes 1 5 Quit : 07/21/1997 Alcohol Use Standard Drinks/Week Comments Yes 0 (1 standard drink = 0.6 oz pure alcoho l) on occasion Sex Assigned at Date Recorded Not on file documented as of this encounter Progress Notes Fredis Houston OD - 05/22/2007 3:53 PM CDT HPI Chief Complaint Patient presents with ??? Contact Lens update rx fo rcontacts, no visual complaints History Reviewed Today's rooming note, PMH, ROS, Family History, Social History, Surgical History, Meds, Allergies, Vitals and Relevant Results Assessment See Documentation Flowsheets and/or Summary Report Plan Spectacle Prescription: see script Patient will probably purchase contacts elsewhere. I wrote the contact lens Rx Return to clinic in 2 year(s) Fredis Houston OD documented in this encounter Plan of Treatment Not on filedocumented as of this encounter Visit Diagnoses Diagnosis Examination of eyes and vision - Primary Myopia Astigmatism, unspecified documented in this encounter Care Teams Hand Decorator Relationship Specialty Start Date End Date Unassigned, Provider PCP - General 02/11/06 08/26/[address] [place] [id number] documented as of this encounter
--- OUTSIDE RECORDS SUMMARY | 2021-12-03 15:58 | XMS_ITS | Encounter Summary ---
:1975 [facility] Address [address] [place] [address] Care Team Providers Name Role Phone Jerrell Beckwith MD Primary Care Provider Unavailable Reason for Visit Reason Comments VASECTOMY,PERFORMED Encounter Details Date Type Department Care Team Description 01/15/2014 Office Visit [facility] Lenin Cormier, Tim cortez (Primary Practice MD Dx) [address] [place] [address] [phone] Social History Tobacco Use Types Packs/Day Years [...] Sign Reading Time Taken Comments Blood Pressure 149/83 01/15/2014 10:19 AM OPTO MECHANICAL TECHNICIAN Pulse 84 01/15/2014 10:19 AM OPTO MECHANICAL TECHNICIAN Temperature 36.4 ??C (97.6 ??F) 01/15/2014 10:13 AM OPTO MECHANICAL TECHNICIAN Respiratory Rate 14 01/15/2014 10:13 AM OPTO MECHANICAL TECHNICIAN Oxygen Saturation - - Inhaled Oxygen Concentration - - Weight - - Height - - Body Mass Index - - documented in this encounter Progress Notes Lenin Cormier MD - 01/15/2014 11:53 AM CST SUBJECTIVE: Claudio Akhtar is a 38 yr old male who is here for a vasectomy. He was seen on 01/07/14 for consult. Refer to that note for further information. The consent form was signed by the patient. He has no new questions. OBJECTIVE: Vital signs within normal limits. Patient was placed supine on the surgical table with penis taped dorsally. The scrotum was prepped with Betadine scrub and then sterilely draped. The right vas deferens was isolated below the median raphe of the anterior scrotal wall and 1% lidocaine was instilled subcutaneously and around the vas. Following adequate anesthesia a small 0.5-cm incision was made with a #15 scalpel blade. Scrotum was then entered using an iris scissors , and a vasectomy clamp was used to grasp the vas deferens and deliver it through the incision. Following further dissection, a 1-cm segment of vas was isolated by clamping proximally and distallywith mosquito clamps, and then excised. The prostatic end of the vas lumen was then cauterized with electrocautery and tied off with 3-0 Vicryl suture. The testicular end of the vas was buried beneath some fascia away from the prostatic end using a 3-0 Vicryl pursestring suture. After adequate hemostasis, the vas was then returned to the scrotum. The left vas deferens was isolated left of median raphe of the anterior scrotal wall and 1% lidocaine was instilled subcutaneously and around the vas. A new incision over this then made. The vas was then grasped with a vasectomy clamp and delivered through the incision, and a similar procedure was performed as on the left. Following this, the left vas was returned to the scrotum. The wound was left open, was quite small. No active bleeding was present. Gauze dressing applied. No complications occurred. IMPRESSION: Vasectomy without complication. PLAN: I discussed postvasectomy care, potential complications, and obtaining semen analyses for assurance of sterility before discontinuing current contraceptive methods. Went through this in detail with patient. Specimen containers and instructions were given. He will contact us with any questions or complications. Patient will be contacted with semen analyses results. Lenin Cormier MD MECHANICAL TECHNICIAN documented in this encounter Plan of Treatment Not on filedocumented as of this encounter Visit Diagnoses Diagnosis Sterilization - Primary documented in this encounter Care Teams Micropaleontologist Relationship Specialty Start Date End Date Jerrell Beckwith MD PCP - General 08/27/09 1 documented as of this encounter
--- OUTSIDE RECORDS SUMMARY | 2021-12-03 15:58 | XMS_ITS | Encounter Summary ---
:1975 Author Organization [facility] Address [address] [place] [address] Care Team Providers Name Role Phone Jerrell Beckwith MD Primary Care Provider Unavailable Reason for Visit Reason Comments Vasectomy Consult Health Maintanence Declined flu Encounter Details Date Type Department Care Team Description 01/07/2014 Office Visit [facility] Lenin Cormier MD Family planning Practice [id number] [place] [address] counseling (Primary [id number] [place] [address] Dx) [place] [address] [phone] Social History Tobacco Use Types Packs/Day Years [...] Reading Time Taken Comments Blood Pressure 128/86 01/07/2014 10:03 AM DISTRICT CAPTAIN Pulse 82 01/07/2014 10:03 AM DISTRICT CAPTAIN Temperature 36.2 ??C (97.2 ??F) 01/07/2014 9:57 AM DISTRICT CAPTAIN Respiratory Rate 14 01/07/2014 9:57 AM DISTRICT CAPTAIN Oxygen Saturation - - Inhaled Oxygen Concentration - - Weight 161.5 kg (356 lb) 01/07/2014 9:57 AM DISTRICT CAPTAIN Height 182.9 cm (6') 01/07/2014 9:57 AM DISTRICT CAPTAIN Body Mass Index 48.28 01/07/2014 9:57 AM DISTRICT CAPTAIN documented in this encounter Progress Notes Lenin Cormier MD - 01/07/2014 10:49 AM CST SUBJECTIVE: Claudio Akhtar is a 38 yr old male who is here for vasectomy consultation. He is and has 2 children. He and are currently using IUD for contraception. Desires permanent sterilization. Patient Active Problem List Diagnosis ??? Obesity, Morbid ??? Vitamin D deficiency Outpatient Prescriptions Marked as Taking for the 01/07/14 encounter (Office Visit) with Lenin Cormier MD: cholecalciferol (VITAMIN D) 2000 UNITS tablet Take 2,000 Units by mouth daily. Disp: Rfl: No Facility-Administered Medications for the 01/07/14 encounter (Office Visit) with Lenin Cormier MD. Social History Occupational History ??? [employer] Social History Main Topics ??? Smoking status: Former Smoker -- 1.00 packs/day for 5 years Types: Cigarettes Quit date: 07/21/1997 ??? Smokeless tobacco: Never Used ??? Alcohol Use: Yes Comment: on occasion ??? Drug Use: No Comment: marijuana ??? Sexual Activity: Partners: Female OBJECTIVE: Normal scrotum and testicles. No hernia. Vas deferens palpable bilaterally. IMPRESSION: Family planning with desire for vasectomy for sterilization. PLAN: Patient viewed vasectomy slides. We gave him a handout on vasectomy, as well as sample of the consent form. Discussed risk of failure as approximately 1 in [id number]. We discussed the procedure in detail as well as pre- and post- vasectomy care and potential complications. He DECLINED a prescription for a single dose of oral Valium for premedication. Vocational Horticulture Instructor required if premedicated, otherwise recommended. He will schedule appointment at his convenience for the procedure. Lenin Cormier MD RICT CAPTAIN documented in this encounter Plan of Treatment Not on filedocumented as of this encounter Visit Diagnoses Diagnosis Family planning counseling - Primary Other general counseling and advice for contraceptive management documented in this encounter Care Teams Clinical Care Coordinator Relationship Specialty Start Date End Date Jerrell Beckwith MD PCP - General 08/27/09 1 documented as of this encounter
--- OUTSIDE RECORDS SUMMARY | 2021-12-03 15:58 | XMS_ITS | Encounter Summary ---
:1975 Author Organization [facility] Address [address] [place] [address] Care Team Providers Name Role Phone Jerrell Beckwith MD Primary Care Provider Unavailable Encounter Details Date Type Department Care Team Description 01/15/2014 Consent for [facility] Lenin Cormier CONSE NT FORM FOR Procedure/[place] [address] [facility] [address] [place] [address] [phone] Social History Tobacco Use Types Packs/Day Years [...] on filedocumented in this encounter Care Teams Credit Assistant Relationship Specialty Start Date End Date Jerrell Beckwith MD PCP - General 08/27/09 1 documented as of this encounter
--- OUTSIDE RECORDS SUMMARY | 2021-12-03 15:58 | XMS_ITS | Encounter Summary ---
:1975 Author Organization [facility] Address [address] [place] [address] Care Team Providers Name Role Phone Unassigned, Provider Primary Care Provider Unavailable Reason for Visit Reason Comments CONTACTS,RE-EVALUATION update rx for contacts and g lasses, no visual complaints Encounter Details Date Type Department Care Team Description 09/19/2008 Office Visit [facility] Fredis Houston, Examination of Eyes and Visi on (Primary Dx); [address] OD Myopia; [place] [address] Unspecified Astigmatism [phone] Social History Tobacco Use Types Packs/Day Years Used Date Smoking Tobacco: Former Cigarettes 1 5 Quit : 07/21/1997 Alcohol Use Standard Drinks/Week Comments Yes 0 (1 standard drink = 0.6 oz pure alcoho l) on occasion Sex Assigned at Date Recorded Not on file documented as of this encounter Progress Notes Fredis Houston OD - 09/19/2008 8:52 AM CDT HPI Chief Complaint Patient presents with ??? CONTACTS,RE-EVALUATION update rx for contacts and glasses, no visual complaints History Reviewed Assessment Myopia, astigmatism Plan Spectacle Prescription given. Patient will probably purchase contacts elsewhere. I wrote the contactlens Rx Return to clinic in 2 year(s) for a contact lens evaluation and a full exam. Fredis Houston OD documented in this encounter Plan of Treatment Not on filedocumented as of this encounter Visit Diagnoses Diagnosis Examination of eyes and vision - Primary Myopia Astigmatism, unspecified documented in this encounter Care Teams Senior Data Modeler Relationship Specialty Start Date End Date Unassigned, Provider PCP - General 02/11/06 08/26/[address] [place] [address] documented as of this encounter
--- OUTSIDE RECORDS SUMMARY | 2021-12-03 15:59 | XMS_ITS | Encounter Summary ---
:1975 Author Organization [facility] Address [address] [place] [address] Care Team Providers Name Role Phone Ana Whitlock APRN, CNP Primary Care Provider [phone] Encounter Details Date Type Department Care Team Description 07/25/2002 [facility] Ana Whitlock L AB TEST FOLLOW UP Family Practice DELFINO RAMOS [address] [place] [phone] Social History Tobacco Use Types Packs/Day Years Used Date Smoking Tobacco: Former Alcohol Use Standard Drinks/Week Comments Not Asked 0 (1 standard drink = 0.6 oz pure alcoho l) Sex Assigned at Date Recorded Not on file documented as of this encounter Progress Notes Ana Whitlock - 07/25/2002 12:00 AM CDT documented in this encounter Plan of Treatment Not on filedocumented as of this encounter Visit Diagnoses Not on filedocumented in this encounter Care Teams Director Safety Council Relationship Specialty Start Date End Date Ana Whitlock APRN, CNP PCP - General 01/28/1999 02/10/[address] [place] [phone] documented as of this encounter
--- OUTSIDE RECORDS SUMMARY | 2021-12-03 15:59 | XMS_ITS | Encounter Summary ---
:1975 Author Organization [facility] Address [address] [place] [address] Care Team Providers Name Role Phone Ana Whitlock APRN, CNP Primary Care Provider [phone] Reason for Visit Reason Onset Date Comments RESULTS, TEST 01/28/2004 wants lab results do ne 01/22/04 at Encounter Details Date Type Department Care Team Description 01/28/2004 Telephone [place] Ana Whitlock RES ULTS, TEST ([facility] DELFINO RAMOS lab results done [address] [facility] 01/22/04 at ) [facility] [phone] (Wo rk) Social History Tobacco Use Types Packs/Day Years Used Date Smoking Tobacco: Former Alcohol Use Standard Drinks/Week Comments Not Asked 0 (1 standard drink = 0.6 oz pure alcoho l) Sex Assigned at Date Recorded Not on file documented as of this encounter Nursing Notes 01/28/2004 11:59 PM 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 >> JODY Mason Jan 28, 2004 11:04 AM Test still pending. Was ordered by his 's provider as a pre- screening test. Will callhim when result available. >> SAGE MOLINA moses Jan 28, 2004 10:34 AM Encounter initiated. documented in this encounter Plan of Treatment Not on filedocumented as of this encounter Visit Diagnoses Not on filedocumented in this encounter Care Teams Sales Trainer Relationship Specialty Start Date End Date Ana Whitlock APRN, HOTEL SERVICES SALES REPRESENTATIVE PCP - General 01/28/1999 02/10/06 [address] [place] [address] documented as of this encounter
--- OUTSIDE RECORDS SUMMARY | 2021-12-03 15:59 | XMS_ITS | Encounter Summary ---
:1975 Author Organization [facility] Address [address] [place] [address] Care Team Providers Name Role Phone Ana Whitlock APRN, CNP Primary Care Provider [phone] Reason for Visit Reason Onset Date Comments BACK PAIN 03/19/2004 Encounter Details Date Type Department Care Team Description 03/19/2004 [facility] Ana Whitlock APRN, BACK PAIN Practice HISTORIC INTERPRETER [address] [place] [phone] [phone] Social History Tobacco Use Types Packs/Day Years Used Date Smoking Tobacco: Former Alcohol Use Standard Drinks/Week Comments Not Asked 0 (1 standard drink = 0.6 oz pure alcoho l) Sex Assigned at Date Recorded Not on file documented as of this encounter Nursing Notes 03/19/2004 11:59 PM 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 >> JODY HIGGINS Tila Mar 19, 2004 2:02 PM Left message to call back. >> DARRION STRICKLAND Tila Mar 19, 2004 12:22 PM Patients back tightened up this morning and is still tight. He would like to know what he can do abo ut this. documented in this encounter Plan of Treatment Not on filedocumented as of this encounter Visit Diagnoses Not on filedocumented in this encounter Care Teams Insurance Claims Adjuster Relationship Specialty Start Date End Date Ana Whitlock APRN, DELFINO PCP - General 01/28/1999 02/10/06 [address] [place] [address] documented as of this encounter
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
--- OUTSIDE RECORDS SUMMARY | 2021-12-03 15:59 | XMS_ITS | Encounter Summary ---
:1975 Author Organization [facility] Address [address] [place] [address] Care Team Providers Name Role Phone Ana Whitlock APRN, DELFINO Primary Care Provider [phone] Encounter Details Date Type Department Care Team Description 01/22/2004 Orders Only [facility] Jaci Delgadillo, [address] [facility] PRIMO RAMOS [place], [place] [id number] Social History Tobacco Use Types Packs/Day Years Used Date Smoking Tobacco: Former Alcohol Use Standard Drinks/Week Comments Not Asked 0 (1 standard drink = 0.6 oz pure alcoho l) Sex Assigned at Date Recorded Not on file documented as of this encounter Plan of Treatment Not on filedocumented as of this encounter Procedures Procedure Name Priority Date/Time Associated Diagnosis Comme nts CYSTIC FIBROSIS Routine 01/22/2004 4:22 PM Result s for this SCREEN ASSEMBLY LINE BRAZER procedure are i n the results section. documented in this encounter Results CYSTIC FIBROSIS SCREEN (01/22/2004 4:22 PM ASSEMBLY LINE BRAZER) [facility] gist Method Time Signature Cystic This Individual Does Not Have Any Mutations Within the Cystic Fibrosis [facility] Fibrosis Scrn Screen Panel See Separate Report Specimen Anatomical Collection Method Collection Time Receive d Time (Source) Location / / Volume Laterality 01/22/2004 4:22 PM 4 4:23 ASSEMBLY LINE BRAZER PM ASSEMBLY LINE BRAZER Jaci Delgadillo APRN, CNM LAB_1 Performing Organization Address City/State/ZIP Code Phon e Number [facility] [phone] [facility] [address] [phone] documented in this encounter Visit Diagnoses Not on filedocumented in this encounter Care Teams Chief Load Dispatcher Relationship Specialty Start Date End Date Ana Whitlock APRN, FAMILY CONSUMER SCIENCE TEACHER PCP - General 01/28/1999 02/10/06 [address] [facility] [place] [place] [phone] documented as of this encounter
--- OUTSIDE RECORDS SUMMARY | 2021-12-03 15:59 | XMS_ITS | Encounter Summary ---
:1975 Author Organization [facility] Address [address] [place] [address] Care Team Providers Name Role Phone Ana Whitlock APRN, CNP Primary Care Provider [phone] Encounter Details Date Type Department Care Team Description 07/25/2002 Office Visit [facility]an Whitlock, PAIN IN [facility] Practice DELFINO RAMOS [address] [place] [phone] [id number] [phone] Social History Tobacco Use Types Packs/Day Years Used Date Smoking Tobacco: Former Alcohol Use Standard Drinks/Week Comments Not Asked 0 (1 standard drink = 0.6 oz pure alcoho l) Sex Assigned at Date Recorded Not on file documented as of this encounter Last Filed Vital Signs Vital Sign Reading Time Taken Comments Blood Pressure 130/84 07/25/2002 8:40 AM CDT Pulse 80 07/25/2002 8:40 AM CDT Temperature 37.1 ??C (98.8 ??F) 07/25/2002 8:40 AM CDT Respiratory Rate - - Oxygen Saturation - - Inhaled Oxygen Concentration - - Weight 129.7 kg (286 lb) 07/25/2002 8:40 AM CDT Height - - Body Mass Index - - documented in this encounter Progress Notes 07/25/2002 8:40 AM CDT Claudio Akhtar is here today for PAIN AND SWELLING ON TESTICAL. Are you having other pain today, that you want to discuss with the provider? -NO Preventive Services up to date? -YES Immunizations up to date? -{YES/NO,NEEDS:62917} Do you ever feel physically threatened or emotionally afraid? -NOT ASKED Tobacco Status reviewed? (see History Social-Substance) -YES-FS gas station attendant offered? -NOT APPLICABLE. Aspirin taken daily? -NO BP was taken on the RIGHT arm. Large cuff used? -YES Health Education given? -NO. Contact phone number [phone] (home) [phone] (work), alternate phone number No current prescriptions on file. NKDA. Mary Lou CIERA Yap 07/25/2002 8:48 AM Ana Whitlock - 07/25/2002 12:00 AM CDTS: A 27-year-old male presented with left testicle and groin discomfort since July 22, 2002. The day prior to that he had been carrying an air conditioner to a store and back from a store which was fairly heavy. [place] the pain when he woke up the next morning. Does not hurt to pee. No problems with urination. No problems with bowel elimination. No abdominal pain, nausea or vomiting. He did try ice last night and 2 tablets of ibuprofen x 2. MEDICATIONS: Ibuprofen p.r.n. ALLERGIES: NKDA. O: Weight 286 pounds, temperature 98.8, pulse 80 and regular, blood pressure 130/84 via right arm. WN/WH/WO, 27-year-old male in NAD. Abdomen: Obese, soft, positive bowel sounds. No HSM. No CVAT. Left inguinal area with discomfort noted with no palpable mass, which extends down into the superior portion of left testicle, with no palpable masses within testicle. Bilateral femoral pulses equal. No reproducible hernia noted. A: Left inguinal strain. P: Supportive care. Anti-inflammatory ibuprofen 800 t.i.d. with food or with milk. Ice. Avoid strenuous activities for the next 7-10 days or be seen prior to that time for further questions or concerns or any worsening symptoms. Discussed hernia symptoms in addition to strangulation hernia symptoms. Patient expressed understanding and agreement with current plan. A cc: documented in this encounter Plan of Treatment Not on filedocumented as of this encounter Visit Diagnoses Diagnosis Pain in limb documented in this encounter Care Teams Intake Specialist Relationship Specialty Start Date End Date Ana Whitlock APRN, MIXER WHIPPED TOPPING PCP - General 01/28/1999 02/10/06 [address] [place] [address] documented as of this encounter
--- OUTSIDE RECORDS SUMMARY | 2021-12-03 15:59 | XMS_ITS | Encounter Summary ---
:1975 Author Organization [facility] Address [address] [place] [address] Care Team Providers Name Role Phone Unassigned, Provider Primary Care Provider Unavailable Encounter Details Date Type Department Care Team Description 10/02/2004 Orders Only [facility] Unknown, Physician Cardiology [address] [place] [phone] (Wo rk) Social History Tobacco Use Types Packs/Day Years Used Date Smoking Tobacco: Former Cigarettes 1 5 Quit : 07/21/1997 Alcohol Use Standard Drinks/Week Comments Yes 0 (1 standard drink = 0.6 oz pure alcoho l) on occasion Sex Assigned at Date Recorded Not on file documented as of this encounter Procedure Notes Rodo Flowers - 10/02/2004 12:00 AM CDTAssociated Order(s): CARDIAC ECHO documented in this encounter Plan of Treatment Not on filedocumented as of this encounter Procedures Procedure Name Priority Date/Time Associated Diagnosis Comme nts CARDIAC ECHO 10/02/2004 12:00 AM Results for this CDT procedure are i n the results section . documented in this encounter Results CARDIAC ECHO (10/02/2004 12:00 AM CDT) Narrative 10/02/2004 12:00 AM CDT This result has an attachment that is no t available. Ordered by an unspecified provider. Transcriptions Rodo Flowers - 10/02/2004 12:00 AM CD T Physician Unknown DUMMY/OTHER/AR documented in this encounter Visit Diagnoses Not on filedocumented in this encounter Care Teams Inspector Poising Relationship Specialty Start Date End Date Unassigned, Provider PCP - General 02/11/06 08/26/[address] [place] [address] documented as of this encounter
--- OUTSIDE RECORDS SUMMARY | 2021-12-03 15:59 | XMS_ITS | Encounter Summary ---
:1975 Author Organization [facility] Address [address] [place] [address] Care Team Providers Name Role Phone Unassigned, Provider Primary Care Provider Unavailable Encounter Details Date Type Department Care Team Description 02/07/2007 Correspondence External to PATIENT DIS CHARGE/NOVACARE Social History Tobacco Use Types Packs/Day Years Used Date Smoking Tobacco: Former Cigarettes 1 5 Quit : 07/21/1997 Alcohol Use Standard Drinks/Week Comments Yes 0 (1 standard drink = 0.6 oz pure alcoho l) on occasion Sex Assigned at Date Recorded Not on file documented as of this encounter Progress Notes LILIAM EDMOND, PROVIDER - 02/07/2007 12:00 AM 

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
--- OUTSIDE RECORDS SUMMARY | 2021-12-03 15:59 | XMS_ITS | Encounter Summary ---
:1975 Author Organization [facility] Address [address] [place] [address] Care Team Providers Name Role Phone Ana Whitlock APRN, CNP Primary Care Provider Reason for Referral Specialty Diagnoses / Procedures Referred By Contact Refer red To Contact Ana Whitlock AP RN, IMMIGRATION INVESTIGATOR [address] [place] [phone] Referral ID Status Reason Start Date Expiration Date Visits Requ ested Visits Authorized Reason for Visit Reason Comments ROUTINE HEALTH MAINTENANCE Encounter Details Date Type Department Care Team Description 09/29/2004 Office Visit [place] Ana Whitlock, PRE VENTIVE CARE EXAM (Primary Dx); Family Practice DELFINO RAMSO VACCINE FOR TETANUS + DIPHTHERIA; [address] [place] [address] UNDIAGNOSED CARDIAC MURMURS [facility] [address] [phone] Social History Tobacco Use Types Packs/Day Years Used Date Smoking Tobacco: Former Cigarettes 1 5 Quit : 07/21/1997 Alcohol Use Standard Drinks/Week Comments Yes 0 (1 standard drink = 0.6 oz pure alcoho l) on occasion Sex Assigned at Date Recorded Not on file documented as of this encounter Last Filed Vital Signs Vital Sign Reading Time Taken Comments Blood Pressure 132/80 09/29/2004 3:40 PM CDT Pulse 100 09/29/2004 3:40 PM CDT Temperature - - Respiratory Rate - - Oxygen Saturation - - Inhaled Oxygen Concentration - - Weight 134.7 kg (297 lb) 09/29/2004 3:40 PM CDT Height 179.7 cm (5' 10.75) 09/29/2004 3:40 PM CDT Body Mass Index 41.72 09/29/2004 3:40 PM CDT documented in this encounter Progress Notes 09/29/2004 3:20 PM CDT S: Claudio Akhtar is in for routine checkup. He feels generally well. Current concerns: ? blood pressure (up at the dentist, measures close to the 140's in the stores). Sexual activity: monogamous in a stable relationship . Cardiovascular risk factors: Total # of Risk Factors for this patient = 0 Nutrition/diet/weight concerns: wants to lose about all of it- under 240 pounds and wants a healthier diet Present dietary habits: does not pay much attention to dietary recommendations. Present exercise habits: does some activities which elevate heart rate several times a week. off and on Domestic violence concerns (per MICHEAL moore):denies any concern I have asked the patient and reviewed the following history(ies): Family, Medical, Social and Surgical Review of systems include: EYES: no visual blurring, no double vision, no glaucoma, no cataracts, no eye pain, no color blindness, ENT: no abnormally frequent URIs, no decrease in hearing, no persistently sore throat, RESPIRATORY: no shortness of breath, no cough, no sputum, CARDIOVASCULAR: no palpitations, no irregular heart beats, no chest pain, no exertional chest pain or pressure, GASTROINTESTINAL: normal appetite, no dysphagia, no nausea, no abdominal pain, no melena, GENITOURINARY: no dysuria, no frequency, no hematuria, MUSCULOSKELETAL: no weakness, no nocturnal cramping, no muscle pains, SKIN: no rash, no itch, no scaling, no hair changes, no nail changes, NEUROLOGIC: no numbness or tingling of hands, no numbness or tingling of feet, no syncope, PSYCHIATRIC: no sleep disturbances, no anxiety, no de pression, HEMATOLOGIC/LYMPHATIC/IMMUNOLOGIC: no fevers, no night sweats, no chills, no weight loss, ENDOCRINE: no cold intolerance, no heat intolerance, no polydypsia, no polyphagia O: General: 29 yr pleasant male who appears his stated age. Today's vital signs were reviewed by me. HEENT: Eyes: no lesions of lids, mattering or rednessHead: normocephalicMouth and throat: without erythema or lesions of the mucosaNose: without septal or mucosal abnormalitiesEars: external canals and TMs free of lesions or abnormalities Neck: supple, without adenopathy or thyromegaly. Lungs: clear to auscultation, no wheezes or rales CV: regular rate and rhythm, normal S1 and S2 without faint systolic murmur Abd: soft, non-tender, no masses, no hepatomegaly or splenomegaly. : Negative scrotum and testicles are non tender, no masses or enlargement noted MS: normal muscle tone & symmetry Skin: No lesions on visual exam or to palpation Neuro: motor and sensory function grossly normal with cranial nerves intact. A: Preventive Evaluation and Exam Murmur P: See today's orders for details Discussed the importance of: Back care, Caffeine concerns, Low fat, high fiber diet and Regular exercise . Check blood pressure over the next two weeks. Follow up if >135/85. Follow-up in 1 Years for preventive care. Will obtain echo and follow up dependent on that. Ana Whitlock NP 3:42 PM 09/29/2004 documented in this encounter Plan of Treatment Scheduled Referrals Name Type Priority Associated Diagnoses Order S chedule ECHOCARDIOGRAM Referral Routine Undiagnosed Cardiac Murmur s Ordered: 09/29/2004 documented as of this encounter Visit Diagnoses Diagnosis Routine general medical examination at [facility] - Primary Routine general medical examination at a [facility] care facility Need for Td vaccine Need for prophylactic vaccination with t etanus-diphtheria (Td) Undiagnosed cardiac murmurs documented in this encounter Care Teams Student Education Specialist Relationship Specialty Start Date End Date Ana Whitlock APRN, IMMIGRATION INVESTIGATOR PCP - General 01/28/1999 02/10/06 [address] [place] [address] documented as of this encounter
--- OUTSIDE RECORDS SUMMARY | 2021-12-03 15:59 | XMS_ITS | Encounter Summary ---
:1975 Author Organization [facility] Address [address] [place] [address] Care Team Providers Name Role Phone Unassigned, Provider Primary Care Provider Unavailable Reason for Visit Reason Comments Influenza (Flu) flu sxs at first with uri sx s and s.t to follow for last 2 weeks --now c/o left neck node swe lling Encounter Details Date Type Department Care Team Description 04/14/2007 Office Visit [place] Antonio Collins, Sali vary Gland Enlargement (Primary Dx); Internal Medicine Swollen Neck [address] [place] [address] Social History Tobacco Use Types Packs/Day Years Used Date Smoking Tobacco: Former Cigarettes 1 5 Quit : 07/21/1997 Alcohol Use Standard Drinks/Week Comments Yes 0 (1 standard drink = 0.6 oz pure alcoho l) on occasion Sex Assigned at Date Recorded Not on file documented as of this encounter Last Filed Vital Signs Vital Sign Reading Time Taken Comments Blood Pressure 130/70 04/14/2007 8:26 AM TRAWL NET MAKER Pulse 80 04/14/2007 8:26 AM TRAWL NET MAKER Temperature 36.8 ??C (98.3 ??F) 04/14/2007 8:26 AM TRAWL NET MAKER Respiratory Rate - - Oxygen Saturation - - Inhaled Oxygen Concentration - - Weight 135.6 kg (299 lb) 04/14/2007 8:26 AM TRAWL NET MAKER Height - - Body Mass Index 41.94 12/16/2006 2:00 PM CDT documented in this encounter Progress Notes Antonio Collins - 04/17/2007 12:25 PM CST Left results of mumps antibody results on pt's as machine. Appears that he has protective IGg levelsand negative IGm levels indicating that he is immune and that the recent parotitis is not due to themumps virus. Dr. Collins L NET MAKER Antonio Collins - 04/14/2007 12:00 AM TRAWL NET MAKER The patient is 31-year-old man who has been ill for the last two weeks. Initially starting with diarrhea and vomiting for about two days, developed a sore throat about a week ago with chills and a fever sensation and mild upper respiratory symptoms and a cough productive of small amount of mucus. Over the last 24 to 48 hours, he has noted swelling in his neck, some soreness of his tongue, gums have been sore, and he developed a cold sore over his upper lip. The patient's examination of his head, eyes, ears, nose, and throat are normal. He has swelling of both parotid glands with mild tenderness. Swelling is somewhat asymmetric, little bit worse on the left than the right. He has prominent swelling of his submandibular salivary gland on the left side. There is no definite lymphadenopathy noted in the neck. The salivary flow is clear and oral mucous membranes along the lateral margin of his tongue are slightly red, but there is no aphthous ulcers and gingival tissue appears to be normal. Patient's chest is clear. Patient has salivary gland enlargement, parotid gland enlargement. He has had mumps immunization as far as he is aware. The patient did have a rapid strep test today for streptococcus, which was negative. His white count today was 4100 and differential count was essentially normal. The patient did get a IgG/IgM antibody titer for mumps and initial IgM be negative. The patient also had a viral throat swab for mumps virus and parainfluenza virus. The patient's youngest child has not been immunized with the first MMR and if she will be brought in to have the first immunization, but we did caution the patient that it might be two weeks before the immune status is established, at least should avoid contact and avoid working until the swelling of his salivary glands is disappeared and recommendation to avoid work for about 9 to 10 days. He was given a note of this effect. The patient was advised on using ice packs over the swollen areas, some oral mouthwash, and he was warned about the possibility of an orchitis episode that might occasionally occur in men with possible mumps. PROBLEM: Bilateral salivary gland enlargement, rule out mumps, rule out other viral infection. P cc: L NET MAKER documented in this encounter Plan of Treatment Not on filedocumented as of this encounter Procedures Procedure Name Priority Date/Time Associated Diagnosis Comme nts VIRUS CULTURE Routine 04/14/2007 9:36 AM Salivary Gland Result s for this TRAWL NET MAKER Enlargement procedure are i n the results section. COMPLETE BLOOD Waiting 04/14/2007 8:46 AM Swollen Neck Results for this COUNT-W/DIFF TRAWL NET MAKER Salivary Gland procedure are in Enlargement the results section. MUMPS VIRUS IGM Routine 04/14/2007 8:46 AM Swollen Neck Results for this TRAWL NET MAKER Salivary Gland procedure are in Enlargement the results section. MUMPS VIRUS IGG Routine 04/14/2007 8:46 AM Swollen Neck Results for this TRAWL NET MAKER Salivary Gland procedure are in Enlargement the results section. STREP GRP A, RAPID Waiting 04/14/2007 8:46 AM Swollen Ne ck Results for this SCREEN TRAWL NET MAKER Salivary Gland procedure are in Enlargement the results section. documented in this encounter Results (ABNORMAL) VIRUS CULTURE (04/14/2007 9:36 AM TRAWL NET MAKER) Component Value Ref Test Analysis Performed At [facility] gist Range Method Time Signature Specimen Throat Swab [facility] Description Special Unspecified [facility] Requests Rapid Antigen Not Performed [facility] E[facility] Detect Culture Influenzae [facility] Virus Type A Isolated by Cell Culture Culture Performed at [facility] Culture This is considered a significant result. Clinical correlat ion is [facility] indicated. (A) Culture Isolate [facility] Reported and Sent to the [facility] Report Status Final [facility] 04/28/2007 Specimen Anatomical Collection Method Collection Time Receive d Time (Source) Location / / Volume Laterality 04/14/2007 9:36 AM 8 9:37 TRAWL NET MAKER AM TRAWL NET MAKER Antonio Collins MD LAB_1 Performing Organization Address City/State/ZIP Code Phon e Number [facility] [phone] [facility] [address] [place] [phone] MUMPS VIRUS IGM (04/14/2007 8:46 AM TRAWL NET MAKER) [facility] Signature Mumps IgM, IFA <1:10 titer [facility] Comment: Reference range: <1:10 Mumps IgM, IFA (NOTE) [facility] RESULT FROM ANY ONE IGM ASSAY SHOULD NOT BE USED A SOLE DETERMINATE OF A CURRENT OR RECENT ?? INFECTION. BECAUSE AN IGM TEST CAN YIELD FALSE POSITIVE RESULTS AND LOW LEVEL OF IGM ANTIBODY MAY PERSIST FOR MORE THAN 12 MONTHS PAST INFECTION, RELIANCE ON A SINGLE TEST COULD BE MISLEADING. IF AN ACUTE INFECTION IS SUSPECTED, CONSIDER OBTAINING A NEW SPECIMEN AND SUBMIT FOR BOTH IGG AND IGM TESTING IN TWO OR MORE WEEKS. Test performed at [facility] [address] ??[id number] Director: LUIS F HOWARD M.D. Specimen Anatomical Collection Method Collection Time Receive d Time (Source) Location / / Volume Laterality 04/14/2007 8:46 AM 8:47 TRAWL NET MAKER AM TRAWL NET MAKER Antonio Collins MD LAB_1 Performing Organization Address City/State/ZIP Code Phon e Number [facility] [phone] [facility] [address] [address] MUMPS VIRUS IGG (04/14/2007 8:46 AM TRAWL NET MAKER) [facility] Mumps IgG by 1.35 EIA VALUE [facility] EIA Comment: Reference range: See (NOTE) Mumps IgG by EIA (NOTE) [facility] EIA VALUE ? EXPLANATION OF TEST RESULTS --------- ? < OR = 0.90 ?NEGATIVE - NO MUMPS IGG ANTIBODY DETECTED 0.91 - 1.09 ?EQUIVOCAL > OR = 1.10 ?POSITIVE - MUMPS IGG ANTIBODY DETECTED A POSITIVE RESULT INDICATES THAT THE PATIENT HAS ANTIBODY TO MUMPS VIRUS. IT DOES NOT DIFFERENTIATE BETWEEN AN ACTIVE OR PAST INFECTION. THE CLINICAL DIAGNOSIS MUST BE INTERPRETED IN CONJUNCTION WITH THE CLINICAL SIGNS AND SYMPTOMS OF THE PATIENT. ?? Test performed at [facility] [address] ??[id number] Director: LUIS F HOWARD M.D. Specimen Anatomical Collection Method Collection Time Receive d Time (Source) Location / / Volume Laterality 04/14/2007 8:46 AM 8 8:47 TRAWL NET MAKER AM TRAWL NET MAKER Antonio Collins MD LAB_1 Performing Organization Address [facility]/ZIP [facility] Phon e Number [facility] [employer] [phone] [facility] [address] [place] [address] STREP GRP A, RAPID SCREEN (04/14/2007 8:46 AM TRAWL NET MAKER) [facility] Method Time Signature Patient Home None [facility] Phone # Patient Work None [facility] Phone # Grp A Rapid Negative NEG [facility] Screen Grp A Culture Negative NEG [facility] Final Specimen Anatomical Collection Method Collection Time Receive d Time (Source) Location / / Volume Laterality 04/14/2007 8:46 AM 8 8:47 TRAWL NET MAKER AM TRAWL NET MAKER Antonio Collins MD LAB_1 Performing Organization Address [facility] Phon e Number [employer] [phone] [address] (ABNORMAL) HEMOGRAM/PLTS/DIFF (04/14/2007 8:46 AM TRAWL NET MAKER) [facility] gist Method Time Signature WBC 4.1 4.0 - [facility] 11.0 k/ul RBC 5.55 4.5 - 5.9 [facility] M/ul Hemoglobin 15.1 13.5 - [facility] 17.5 g/dl HCT 45.6 41.0 - [facility] 53.0 % MCV 82.2 80 - 100 [facility] fl MCH 27.2 26 - 34 [facility] pg MCHC 33.1 32 - 36 % [facility] RDW 14.9 (H) 11.5 - [facility] 14.5 % Platelets 196 150 - 450 [facility] k/ul PMN/Band 50 43 - 72 % [facility] Lymph 32 17 - 43 % [facility] Clay 12 4 - 12 % [facility] Eos 5 0 - 8 % [facility] Baso 2 (H) 0 - 1 % [facility] Neutrophil 2.0 1.8 - 7.7 [facility] Absolute k/ul Lymph Absolute 1.3 1.0 - 4.8 [facility] k/ul Clay Absolute 0.5 0.1 - 0.7 [facility] k/ul Eos Absolute 0.2 0.0 - 0.5 [facility] k/ul Baso Absolute 0.1 0.0 - 0.2 [facility] k/ul Specimen Anatomical Collection Method Collection Time Receive d Time (Source) Location / / Volume Laterality 04/14/2007 8:46 AM 8 8:47 TRAWL NET MAKER AM TRAWL NET MAKER Antonio Collins MD LAB_1 Performing Organization Address City/State/ZIP Code Phon e Number [facility] [phone] [facility] [address] [address] documented in this encounter Visit Diagnoses Diagnosis Salivary gland enlargement - Primary Hypertrophy of salivary gland Swollen neck Swelling, mass, or lump in head and neck documented in this encounter Care Teams Stone Rougher Relationship Specialty Start Date End Date Unassigned, Provider PCP - General 02/11/06 08/26/09 [address] [place] [address] documented as of this encounter
--- OUTSIDE RECORDS SUMMARY | 2021-12-03 15:59 | XMS_ITS | Encounter Summary ---
:1975 Author Organization [facility] Address [address] [place] [address] Care Team Providers Name Role Phone Unavailable Primary Care Provider Unavailable Encounter Details Date Type Department Care Team Description 01/26/1999 Orders Only Sumeet Madsen MD [facility] [address] [place] [address] [place], [place] [address] Social History Tobacco Use Types Packs/Day Years Used Date Smoking Tobacco: Never Assessed Sex Assigned at Date Recorded Not on file documented as of this encounter Plan of Treatment Not on filedocumented as of this encounter Procedures Procedure Name Priority Date/Time Associated Diagnosis Comme nts COMPLETE BLOOD Routine 01/26/1999 10:06 AM Result s for this COUNT-NO DIFF CHRONIC DISEASE EPIDEMIOLOGIST procedure are in the results section. LIPID PANEL, FAST > Routine 01/26/1999 10:06 AM R esults for this 12 HOUR CHRONIC DISEASE EPIDEMIOLOGIST procedure are i n the results section. GLUCOSE - FASTING > Routine 01/26/1999 10:06 AM R esults for this 8 HRS FASTING CHRONIC DISEASE EPIDEMIOLOGIST procedure are in the results section. UA MICRO IF Routine 01/26/1999 10:06 AM Results for this CHRONIC DISEASE EPIDEMIOLOGIST procedure are i n the results section. documented in this encounter Results GLUCOSE - FASTING > 8 HRS FASTING (01/26/1999 10:06 AM CHRONIC DISEASE EPIDEMIOLOGIST) P athologist Signature Glucose 94 70 - 110 [facility] mg/dl Hours Fasting 12 hours [facility] Specimen Anatomical Collection Method Collection Time Receive d Time (Source) Location / / Volume Laterality 01/26/1999 10:06 01/26/1999 AM CHRONIC DISEASE EPIDEMIOLOGIST 10:07 AM CHRONIC DISEASE EPIDEMIOLOGIST Sumeet Madsen MD LAB_1 Performing Organization Address City/State/ZIP Code Phon e Number [employer] [phone] [facility] [address] [place] [address] (ABNORMAL) CHOLESTEROL LIPID PANEL FAST >12HR FAST (01/26/1999 10:06 AM CHRONIC DISEASE EPIDEMIOLOGIST) Analysis Performed At Patho logist Time Signature Cholesterol 255 (H) <200 mg/dl [facility] Triglyceride 210 (H) <200 mg/dl [facility] HDL 41 >35 mg/dl [facility] LDL, Calc. 172 mg/dl [facility] Hours Fasting 12 hours [facility] Specimen Anatomical Collection Method Collection Time Receive d Time (Source) Location / / Volume Laterality 01/26/1999 10:06 01/26/1999 AM CHRONIC DISEASE EPIDEMIOLOGIST 10:07 AM CHRONIC DISEASE EPIDEMIOLOGIST Sumeet Madsen MD LAB_1 Performing Organization Address [facility] Phon e Number [employer] [phone] [address] HEMOGRAM/PLTS (01/26/1999 10:06 AM CHRONIC DISEASE EPIDEMIOLOGIST) P athologist Signature WBC 6.9 3.6 - 11.0 [facility] k/ul RBC 5.15 4.5 - 5.9 [facility] M/ul Hemoglobin 15.6 13.5 - 17.5 [facility] g/dl HCT 45.6 41.0 - 53.0 [facility] % MCV 88.5 80 - 100 fl [facility] MCH 30.4 26 - 34 pg [facility] MCHC 34.3 32 - 36 % [facility] RDW 12.3 11.5 - 14.5 [facility] % Platelets 212 150 - 450 [facility] k/ul Specimen Anatomical Collection Method Collection Time Receive d Time (Source) Location / / Volume Laterality 01/26/1999 10:06 01/26/1999 AM CHRONIC DISEASE EPIDEMIOLOGIST 10:07 AM CHRONIC DISEASE EPIDEMIOLOGIST Sumeet Madsen MD LAB_1 Performing Organization Address [facility] Phon e Number [employer] [phone] [address] UA MICRO IF (01/26/1999 10:06 AM CHRONIC DISEASE EPIDEMIOLOGIST) [facility] Method Time Signature Appr Yellow [facility] Appr Clear [facility] Sp Gr 1.020 1.005 - [facility] 1.030 Leuk 0 0 [facility] Nitr 0 0 [facility] pH 6.0 4.5 - 8.0 [facility] Prot 0 0 mg/dl [facility] Gluc 0 0 g/dl [facility] Ket 0 0 [facility] Urob 0.1-1 0.1 - 1 [facility] mg/dl Bili 0 0 [facility] Blood 0 0 [facility] Comment Micro Not [facility] Indicated Specimen Anatomical Collection Method Collection Time Receive d Time (Source) Location / / Volume Laterality 01/26/1999 10:06 01/26/1999 AM CHRONIC DISEASE EPIDEMIOLOGIST 10:07 AM CHRONIC DISEASE EPIDEMIOLOGIST Sumeet Madsen MD LAB_1 Performing Organization Address City/State/ZIP Code Phon e Number [facility] [phone] [facility] [address] [address] documented in this encounter Visit Diagnoses Not on filedocumented in this encounter
--- OUTSIDE RECORDS SUMMARY | 2021-12-03 15:59 | XMS_ITS | Encounter Summary ---
:1975 Author Organization [facility] Address [address] [place] [address] Care Team Providers Name Role Phone Ana Whitlock APRN, CNP Primary Care Provider [phone] Encounter Details Date Type Department Care Team Description 09/13/2005 [facility] Visit [facility] Rebeca Antony CHRISTIAN MCKAYLA; [facility] BREN Velasquez TEAR FILM INSUFFIC NOS [address] [place] [address] [place], [place] [phone] [address] Social History Tobacco Use Types Packs/Day Years Used Date Smoking Tobacco: Former Cigarettes 1 5 Quit : 07/21/1997 Alcohol Use Standard Drinks/Week Comments Yes 0 (1 standard drink = 0.6 oz pure alcoho l) on occasion Sex Assigned at Date Recorded Not on file documented as of this encounter Progress Notes Rebeca Antony - 09/13/2005 12:00 AM CDT documented in this encounter Plan of Treatment Not on filedocumented as of this encounter Visit Diagnoses Diagnosis Myopia Tear film insufficiency, unspecified documented in this encounter Care Teams Meeting Coordinator Relationship Specialty Start Date End Date Ana Whitlock APRN, CNP PCP - General 01/28/1999 02/10/06 [address] [place] [address] documented as of this encounter
--- OUTSIDE RECORDS SUMMARY | 2021-12-03 15:59 | XMS_ITS | Encounter Summary ---
:1975 Author [facility] Address [address] [place] [address] Care Team Providers Name Role Phone Ana Whitlock APRN, CNP Primary Care Provider [phone] Encounter Details Date Type Department Care Team Description 08/30/2005 Correspondence None [facility]p Tommy, Provider consent to release Social History Tobacco Use Types Packs/Day Years Used Date Smoking Tobacco: Former Cigarettes 1 5 Quit : 07/21/1997 Alcohol Use Standard Drinks/Week Comments Yes 0 (1 standard drink = 0.6 oz pure alcoho l) on occasion Sex Assigned at Date Recorded Not on file documented as of this encounter Progress Notes Sanjiv Sanders, Provider - 08/30/2005 12:00 AM CDT documented in this encounter Plan of Treatment Not on filedocumented as of this encounter Visit Diagnoses Not on filedocumented in this encounter Care Teams Doctor Naturopathic Relationship Specialty Start Date End Date Ana Whitlock APRN, CNP PCP - General 01/28/1999 02/10/06 [address] [place] [address] documented as of this encounter
--- OUTSIDE RECORDS SUMMARY | 2021-12-03 15:59 | XMS_ITS | Encounter Summary ---
:1975 Author Organization [facility] Address [address] [place] [address] Care Team Providers Name Role Phone Ana Whitlock APRN, CNP Primary Care Provider [phone] Encounter Details Date Type Department Care Team Description 08/30/2005 [facility] Visit [facility] Rebeca Antony EYE & VISION EXAMINATION; [facility] BREN Velasquez [place] [address] [place] [address] [place], [place] [phone] Social History Tobacco Use Types Packs/Day Years Used Date Smoking Tobacco: Former Cigarettes 1 5 Quit : 07/21/1997 Alcohol Use Standard Drinks/Week Comments Yes 0 (1 standard drink = 0.6 oz pure alcoho l) on occasion Sex Assigned at Date Recorded Not on file documented as of this encounter Progress Notes Rebeca Antony - 08/30/2005 12:00 AM CDT documented in this encounter Plan of Treatment Not on filedocumented as of this encounter Visit Diagnoses Diagnosis Examination of eyes and vision Myopia documented in this encounter Care Teams Commercial Assistant Relationship Specialty Start Date End Date Ana Whitlock APRN, CNP PCP - General 01/28/1999 02/10/06 [address] [place] [address] documented as of this encounter
--- OUTSIDE RECORDS SUMMARY | 2021-12-03 15:59 | XMS_ITS | Encounter Summary ---
:1975 Author Organization [facility] Address [address] [place] [address] Care Team Providers Name Role Phone Unassigned, Provider Primary Care Provider Unavailable Encounter Details Date Type Department Care Team Description 01/22/2004 Orders Only [facility] Obstetrics and Unknown, Physician Gynecology [address] [place] [address] [place] [address] [phone] Social History Tobacco Use Types Packs/Day Years Used Date Smoking Tobacco: Former Alcohol Use Standard Drinks/Week Comments Not Asked 0 (1 standard drink = 0.6 oz pure alcoho l) Sex Assigned at Date Recorded Not on file documented as of this encounter Procedure Notes Jaci Delgadillo - 01/22/2004 12:00 AM CSTAssociated Order(s): OUTSIDE LAB NDERER documented in this encounter Plan of Treatment Not on filedocumented as of this encounter Procedures Procedure Name Priority Date/Time Associated Diagnosis Comme nts OUTSIDE LAB 01/22/2004 12:00 AM Results for this CALENDERER procedure are i n the results section . documented in this encounter Results OUTSIDE LAB (01/22/2004 12:00 AM CALENDERER) Narrative 01/22/2004 12:00 AM CALENDERER This result has an attachment that is no t available. Ordered by an unspecified provider. Transcriptions Jaci Delgadillo - 01/22/2004 12:[address] Physician Unknown DUMMY/OTHER/AR documented in this encounter Visit Diagnoses Not on filedocumented in this encounter Care Teams Professional Bass Fisher Relationship Specialty Start Date End Date Unassigned, Provider PCP - General 02/11/06 08/26/[address] [place] [id number] documented as of this encounter
--- OUTSIDE RECORDS SUMMARY | 2021-12-03 15:59 | XMS_ITS | Encounter Summary ---
:1975 Author Organization [facility] Address [address] [place] [address] Care Team Providers Name Role Phone Ana Whitlock APRN, CNP Primary Care Provider [phone] Reason for Visit Reason Comments DIZZINESS Encounter Details Date Type Department Care Team Description 09/03/2003 Office Visit [place] Ana Whitlock DIZ ZINESS AND Family Practice DELFINO RAMOS (Primary Dx) [address] [place] [phone] Social History Tobacco Use Types Packs/Day Years Used Date Smoking Tobacco: Former Alcohol Use Standard Drinks/Week Comments Not Asked 0 (1 standard drink = 0.6 oz pure alcoho l) Sex Assigned at Date Recorded Not on file documented as of this encounter Last Filed Vital Signs Vital Sign Reading Time Taken Comments Blood Pressure 118/78 09/03/2003 2:19 PM CDT Pulse 80 09/03/2003 2:19 PM CDT Temperature 37.1 ??C (98.8 ??F) 09/03/2003 2:19 PM CDT Respiratory Rate - - Oxygen Saturation - - Inhaled Oxygen Concentration - - Weight 127.5 kg (281 lb) 09/03/2003 2:19 PM CDT Height - - Body Mass Index - - documented in this encounter Progress Notes 09/03/2003 2:20 PM CDT SUBJECTIVE: Claudio Akhtar is a 28 year old male who complains of new onset positional vertigo for 2 days. He has not had this in the past. The patient denies any other symptoms of neurological impairment or TIA's; no amaurosis, diplopia, dysphasia, or unilateral disturbance of motor or sensory function. No headaches. No hearing loss or tinnitus, nor head injury. No palpitations or syncope. Healthy in the p ast. The night prior to onset of symptoms had 6-8 beers and 1 Captain Darshan drink. The following day (temp in the high 80's with hig humidity), he spent the entire day on the boat and the water with little fluid intake. No current outpatient prescriptions on file. OBJECTIVE: BP 118/78 Pulse 80 Temp (Src) 98.8 (Oral) Wt 281 lbs (127.5kg) Appears well, in no apparent distress. Ears normal. Neck supple. No adenopathy or masses in the neck or supraclavicular regions. Cranial nerves are normal. Fundi are normal with sharp disc margins, no papilledema, hemorrhages or exudates noted. ANA. EOM's intact. DTR's normal and symmetric. Mental status normal. Gait and station normal. Romberg negative. Cerebellar function is normal. No internuclear ophthalmoplegia. Pulse regular. Rapid changes in position during the exam precipitate brief dizziness without nystagmus. Please see Bilingual Trainer activity for all orders placed today. ASSESSMENT: Acute labyrinthitis (vestibular neuronitis) vs. dehydration PLAN: The patient is reassured that these symptoms do not appear to represent a serious or threatening condition. This is generally a self-limited temporary but uncomfortable situation. Rest, avoid potentially dangerous activities (such as driving or working with machinery or at heights), use OTC Meclizineprn. Asked to call if develops other symptoms, such as alterations of speech, swallowing, vision, motor or sensory systems, or if dizziness persists or worsens. Push fluids aggressively, avoid caffeinated beverages and alcohol. documented in this encounter Plan of Treatment Not on filedocumented as of this encounter Procedures Procedure Name Priority Date/Time Associated Diagnosis Comme nts COMPLETE BLOOD Waiting 09/03/2003 2:41 PM Dizziness And Result s for this COUNT-NO DIFF CDT Giddiness procedure are in the results section. ACCUCHECK GLU Waiting 09/03/2003 2:41 PM Dizziness And Results for this RANDOM <8HR FAST CDT Giddiness procedure a re in (WAITING) the results section. UA MICRO IF Waiting 09/03/2003 2:41 PM Dizziness And Results for this CDT Giddiness procedure are i n the results section. TSH, SENSITIVE Routine 09/03/2003 2:41 PM Dizziness And Result s for this (WITH REFLEX) CDT Giddiness procedure are in the results section. UA MICRO Waiting 09/03/2003 2:41 PM Dizziness And Results for this CDT Giddiness procedure are i n the results section. documented in this encounter Results UA MICRO (09/03/2003 2:41 PM CDT) athologist Signature RBC'S 0-3 0 - 3 /hpf [facility] WBC'S 0 0 - 5 /hpf [facility] Epith, 0 /hpf [facility] Squamous Bact 0 [facility] Casts 0 /lpf [facility] Specimen Anatomical Collection Method Collection Time Receive d Time (Source) Location / / Volume Laterality 09/03/2003 2:41 PM 4 2:42 CDT PM CDT Ana Whitlock APRN EDUCATIONAL MANAGER LAB_1 Performing Organization Address City/[facility]/ZIP [facility] Phon e Number [employer] [phone] [facility] [address] [place] [phone] TSH, SENSITIVE (09/03/2003 2:41 PM CDT) athologist Signature TSH 1.38 0.30 - 5.00 [facility] uIU/ml Thyroid Meds No [facility] Specimen Anatomical Collection Method Collection Time Receive d Time (Source) Location / / Volume Laterality 09/03/2003 2:41 PM 4 2:42 CDT PM CDT Ana Whitlock APRN EDUCATIONAL MANAGER LAB_1 Performing Organization Address City/[facility] Phon e Number [employer] [phone] [facility] [address] [place] [phone] (ABNORMAL) UA MICRO IF (09/03/2003 2:41 PM CDT) athologist Signature Appr Yellow [facility] Appr Clear [facility] Sp Gr 1.025 1.005 - [facility] 1.030 Leuk Neg TOM [facility] Nitr Neg TOM [facility] pH 5.0 4.5 - 8.0 [facility] Prot Neg TOM mg/dl [facility] Gluc Neg TOM mg/dl [facility] Ket Neg TOM mg/dl [facility] Urob 0.2 0.2 - 1.0 [facility] EU/dl Bili Neg TOM [facility] Blood Tr (A) TOM [facility] Specimen Anatomical Collection Method Collection Time Receive d Time (Source) Location / / Volume Laterality 09/03/2003 2:41 PM 4 2:42 CDT PM CDT Ana Whitlock APRN, CNP LAB_1 Performing Organization Address [facility] Phon e Number [employer] [phone] [facility] [address] [place] [phone] HEMOGRAM/PLTS (09/03/2003 2:41 PM CDT) athologist Signature WBC 6.0 3.6 - 11.0 [facility] k/ul RBC 5.08 4.5 - 5.9 [facility] M/ul Hemoglobin 14.6 13.5 - 17.5 [facility] g/dl HCT 43.0 41.0 - 53.0 [facility] % MCV 84.6 80 - 100 fl [facility] MCH 28.7 26 - 34 pg [facility] MCHC 34.0 32 - 36 % [facility] RDW 12.9 11.5 - 14.5 [facility] % Platelets 201 150 - 450 [facility] k/ul Specimen Anatomical Collection Method Collection Time Receive d Time (Source) Location / / Volume Laterality 09/03/2003 2:41 PM 4 2:42 CDT PM CDT Ana Whitlock APRN, CNP LAB_1 Performing Organization Address [facility] Phon e Number [employer] [phone] [facility] [address] [place] [phone] ACCUCHECK GLU RANDOM <8HR FAST WAITING (09/03/2003 2:41 PM CDT) Component Value Ref Test Analysis Performed At [facility] gist Range Method Time Signature Glucose, bG 100 65 - 115 [facility] Strip mg/dl Glucose, bG Semi-quantitative result (bG) may be 5-10% lower than [facility] Strip quantitative Glucose, bG result. [facility] Strip Hours Fasting 1.5 hours [facility] Specimen Anatomical Collection Method Collection Time Receive d Time (Source) Location / / Volume Laterality 09/03/2003 2:41 PM 4 2:42 CDT PM CDT Ana Whitlock APRN, CNP LAB_1 Performing Organization Address City/State/ZIP Code Phon e Number [facility] [phone] [facility] [address] [phone] documented in this encounter Visit Diagnoses Diagnosis Dizziness and giddiness - Primary documented in this encounter Care Teams Cardio Clinician Relationship Specialty Start Date End Date Ana Whitlock APRN, CNP PCP - General 01/28/1999 02/10/[address] [place] [phone] documented as of this encounter
--- OUTSIDE RECORDS SUMMARY | 2021-12-03 15:59 | XMS_ITS | Encounter Summary ---
:1975 Author Organization [facility] Address [address] [place] [address] Care Team Providers Name Role Phone Ana Whitlock APRN, CNP Primary Care Provider [phone] Reason for Visit Reason Comments ANKLE PAIN lt. ankle injury/ softball l ast evening Encounter Details Date Type Department Care Team Description 06/28/2005 Office Visit [facility]/STRA[facility] OF Family Practice Peggy Gee APRN, CNP ANKLE NOS (Primary [address] [facility] D[facility]) [facility] [address] Social History Tobacco Use Types Packs/Day Years Used Date Smoking Tobacco: Former Cigarettes 1 5 Quit : 07/21/1997 Alcohol Use Standard Drinks/Week Comments Yes 0 (1 standard drink = 0.6 oz pure alcoho l) on occasion Sex Assigned at Date Recorded Not on file documented as of this encounter Last Filed Vital Signs Vital Sign Reading Time Taken Comments Blood Pressure 116/66 06/28/2005 8:20 AM CDT Pulse 72 06/28/2005 8:20 AM CDT Temperature - - Respiratory Rate 16 06/28/2005 8:20 AM CDT Oxygen Saturation - - Inhaled Oxygen Concentration - - Weight 137.4 kg (303 lb) 06/28/2005 8:20 AM CDT Height - - Body Mass Index 42.56 09/29/2004 3:40 PM CDT documented in this encounter Patient Instructions Patient Rqwcrtqtusxi71/08/2006 8:20 AM CDT 1) Leave on the air cast splint for 2 weeks at least, more time as needed. 2) Elevate the foot above the level of your heart while at home in the evening. 3) Apply ice for 20 minutes onn, 20 minutes off at least 3 times a day for 1-2 weeks. 4) No softball for at least 2 weeks, if you are feeling like you are healing well you can play justas tolerated. Ankle sprains take a while to heal, don't push it. 5) If the pain gets any worse or doesn't get any better in 1-2 weeks return to the clinic. documented in this encounter Progress Notes 06/28/2005 8:20 AM CDT SUBJECTIVE: Claudio Akhtar is a 30 yr male who presents for evaluation of a left ankle injury. The incident occurred 11 hour(s) ago, while stopping at 3rd baseplaying softball. The patient could bear weight immediately after the injury. Has taken ibuprofen this am, which helped. He elevated in while sleeping and applied ice toit last night. His wrapped it in an lalo wrap. Sl. paresthesias in the toes. No prior ankle injury. Rates pain 2-3/10, worse when twisting ankle. 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 Meds: None Allergies: NKDA OBJECTIVE: BP 116/66 Pulse 72 Resp 16 Wt 303 lbs (137.4kg) General: stated age, healthy, alert, in no distress left ankle: posterior fibula: nontender posterior tibia: nontender Anterior fibular: tender and swollen to palpation left midfoot: base of 5th metatarsal: nontender navicular: nontender Weight Bearing: the patient is able to bear weight on the injured leg at this time. Pulses, sensation, and toe movement normal. Able to accurately distinguish between sharp and dull sensations bilat. DP and PT pulses 2+ bilat. Swelling at the anterior tip of the lateral malleolus, not bruising or erythema. Left ankle x-ray: negative for fx ASSESSMENT: left ankle sprain, Mild PLAN: See orders and pt instructions for details. Ankle splint for 2 weeks. Physical therapy: not necessary Recommended rest and avoidance of activities which cause pain or swelling. Ice for 15-20 minutes every 2-3 hrs while awake for 2 days. Compression: elastic wrap or ankle splint to control swelling. Do not use while sleeping. Elevation. Pain relief: acetominophen for the first 24 hours, then ASA or ibuprofen with food. Ankle exercises recommended. DUKE Coe documented in this encounter Procedure Notes Curtis Pitt - 06/28/2005 12:00 AM CDTAssociated Order(s): ANKLE 3 VIEWS (STANDARD) CLINICAL DATA: Injury. EXAMINATION: LEFT ANKLE: 06/28/05 FINDINGS: There is soft tissue swelling laterally. The bones are normal. No fractures. Geoffrey Coffman MD P cc: Radiology IG DUKE Coe documented in this encounter Plan of Treatment Not on filedocumented as of this encounter Procedures Procedure Name Priority Date/Time Associated Diagnosis Comme nts RADEX ANKLE COMPL Routine 06/28/2005 Sprain/Strain Of Ankle Results for this MINIMUM 3 VIEWS Nos procedure ar e in the results section . documented in this encounter Results ANKLE 3 VIEWS (STANDARD) (06/28/2005) Anatomical Region Laterality Modality Other Transcriptions Curtis Pitt - 06/28/2005 12:00 AM C DTCLINICAL DATA: Injury. EXAMINATION: LEFT ANKLE: 06/28/05 FINDINGS: There is soft tissue swelling laterally. The bones are normal. No fractures. Geoffrey Coffman MD P cc: Radiology IG DUKE Coe Peggy Lopes APRN, CNP RAD_1 documented in this encounter Visit Diagnoses Diagnosis Sprain of ankle, unspecified site - Prim estela documented in this encounter Care Teams Lcpc Relationship Specialty Start Date End Date Ana Whitlock APRN, DELFINO PCP - General 01/28/1999 02/10/06 [address] [place] [phone] documented as of this encounter
--- OUTSIDE RECORDS SUMMARY | 2021-12-03 15:59 | XMS_ITS | Encounter Summary ---
:1975 Author Organization [facility] Address [address] [place] [address] Care Team Providers Name Role Phone Unassigned, Provider Primary Care Provider Unavailable Reason for Referral Specialty Diagnoses / Procedures Referred By Contact Refer red To Contact Franci Shukla, RACHEL, C HISTORICAL INTERPRETER [facility] [address] [place] [address] Referral ID Status Reason Start Date Expiration Date Visits Requ ested Visits Authorized Reason for Visit Reason Comments SWELLING, KNEE right Encounter Details Date Type Department Care Team Description 12/16/2006 Office Visit [facility] Internal Franci Shukla, Swelling of Right Knee Joint (Primary Dx); Medicine SMOKING TOBACCO PACKER HAND, COMPUTATIONAL GENETICIST Obesity, Morbid [address] [place] [address] CLINIC [phone] [address] [place] [address] Social History Tobacco Use Types Packs/Day Years Used Date Smoking Tobacco: Former Cigarettes 1 5 Quit : 07/21/1997 Alcohol Use Standard Drinks/Week Comments Yes 0 (1 standard drink = 0.6 oz pure alcoho l) on occasion Sex Assigned at Date Recorded Not on file documented as of this encounter Last Filed Vital Signs Vital Sign Reading Time Taken Comments Blood Pressure 126/80 12/16/2006 2:00 PM CDT Pulse 98 12/16/2006 2:00 PM CDT Temperature 36.7 ??C (98 ??F) 12/16/2006 2:00 PM CDT Respiratory Rate 20 12/16/2006 2:00 PM CDT Oxygen Saturation - - Inhaled Oxygen Concentration - - Weight 140.2 kg (309 lb) 12/16/2006 2:00 PM CDT Height 179.8 cm (5' 10.8) 12/16/2006 2:00 PM CDT Body Mass Index 43.34 12/16/2006 2:00 PM CDT documented in this encounter Progress Notes Franci Shukla - 12/16/2006 2:22 PM CDT Schedule Physical therapy for right knee swelling recent hamstring injury. SUBJECTIVE: Claudio Akhtar is a(n) 31 yr male who presents today for evaluation of right knee pain. The pain started 6 week(s) ago, while playing solft ball sustained a pulled hamstring. Initially theknee was not affected but he was doing deep knee bends to strengthen the hamstrings and the knee slowly became swollen. Pain is minimal, more Tight feeling from the swelling The pain feels dull and is not very bad. Aggravating factors include: climbing stairs and kneeling. Pain alleviating measures attempted include: NSAIDs. They have not been beneficial. His past history is not notable for previous knee injuries. Fever, chills, and swelling of other joints have not occurred. OBJECTIVE: Knee: Appearance: Slight swelling noted but no erythemia Muscle bulk and tone: normal An effusion is not appreciable. Palpation reveals tenderness: No tenderness. Range of Motion is mildly limited. Ligamentous testing reveals no instability. Mera's test and anterior drawer signs are negative . Posterior drawer sign is negative . Pam's test is significant for no tenderness. ASSESSMENT: Knee overuse syndrom obesity PLAN: Recommended therapies include: ice, NSAIDs, physical therapy, light strengthening and stretching exercises and stop deep knee bends immediately. Return immediately if fever, erythemia present. Needs to diligently work at weight loss as this will caused increased joint probems as he ages. Follow up in 3 week(s).Franci Shukla NP 12/16/2006 2:43 PM documented in this encounter Plan of Treatment Not on filedocumented as of this encounter Visit Diagnoses Diagnosis Swelling of right knee joint - Primary Effusion of lower leg joint Obesity, morbid (HRC) Morbid obesity documented in this encounter Care Teams Gis Programmer Relationship Specialty Start Date End Date Unassigned, Provider PCP - General 02/11/06 08/26/09 [address] [place] [address] documented as of this encounter
--- OUTSIDE RECORDS SUMMARY | 2021-12-03 15:59 | XMS_ITS | Encounter Summary ---
:1975 Author Organization [facility] Address [address] [place] [address] Care Team Providers Name Role Phone Unavailable Primary Care Provider Unavailable Reason for Visit Reason Comments PE VIA INTERFACE Encounter Details Date Type Department Care Team Description 01/26/1999 Office Visit [place] Alonzo Madsen MD PREVENTIVE CARE EXAM; Family Practice [address] [facility] OBESITY NOS; [address] [employer] [place] [address] LABORATORY EXAMINATION [place], [facility] Social History Tobacco Use Types Packs/Day Years Used Date Smoking Tobacco: Never Assessed Sex Assigned at Date Recorded Not on file documented as of this encounter Progress Notes Sumeet Madsen - 01/26/1999 12:00 AM CSTS: 23 year-old generally healthy WM in for routine health maintenance exam. No regular medications, no known drug allergies. Stopped smoking in 1996 after 3-4 years of moderate use. Alcohol on weekends, no significant amounts according to patient, no history of regular street drug use, intravenous drugs. No [id number] drug use. PMH significant for appendectomy at approximately 17 years of age, uncomplicated. History of mole removal from the right shoulder, uncomplicated with benign result. Family history of skin cancer in an aunt, apparently melanoma. Doing well by history. Patient is engaged, no children. 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 ROS is negative. Acknowledges moderate obesity, relatively sedentary lifestyle. He and his fiance have attempted to lose weight, join a health club, but were not able to sustain those major measures. Consumes at least 3 cans of Mountain Dew per day on a regular basis, does not follow a low fat diet at all. Is interested in some counseling regarding weight loss. Last tetanus booster approximately 8 years ago, declines booster today. Has not had hepatitis B series. O: General: Obese, otherwise healthy appearing young WM, stated age, no acute distress. Blood pressure 112/72, pulse 72 and regular, weight 265 lbs. Height is 71 . Tympanic membranes normal. Mouth and throat unremarkable. Fundi benign. Neck is supple with no adenopathy or thyromegaly. Lungs are clear with good air movement. Heart: Regular rhythm, S1, S2 with no murmur. Breasts show no masses. Lymphatic: No cervical, supraclavicular, axillary, or inguinal adenopathy. Abdomen is moderately obese and benign. Genitourinary: Normal circumcised male with bilaterally descended testes, no masses. No inguinal hernia present. Rectal exam is not performed, no indication. Neurologic: Normal speech, gait, station, coordination. A: 1. Generally healthy man with no acute medical problems. 2. Chronic weight management difficulties with moderate obesity. At risk for long-term obesity. P: 1. Offered hepatitis B series, patient will consider. May f/u in the next 1-2 years for tetanus booster, otherwise prn. 2. Georges discussion regarding hidden calories present in Mountain Dew and other soda drinks, high fat foods. Estimate that if the patient is able to cut back on Mountain Dew or eliminate this altogether, he would likely lose 1 or more lbs a month w/o changing anything else. Would certainly be happy to see him again, schedule visit with shipping and receiving assistant for him and his fiance if desired. F/u is otherwise prn. cc: OLE TACKER documented in this encounter Plan of Treatment Not on filedocumented as of this encounter Visit Diagnoses Diagnosis Routine general medical examination at [facility] facility Routine general medical examination at a [facility] care facility Obesity, unspecified (HRC) Obesity, unspecified Laboratory examination documented in this encounter
--- OUTSIDE RECORDS SUMMARY | 2021-12-03 15:59 | XMS_ITS | Encounter Summary ---
:1975 Author Organization [facility] Address [address] [place] [address] Care Team Providers Name Role Phone Nannette Whitlock APRN, HOT KETTLE TENDER Primary Care Provider [phone] Reason for Visit Reason Onset Date Comments RESULTS, TEST 10/13/2004 Encounter Details Date Type Department Care Team Description 10/13/2004 Telephone [facility] Nannette Whitlock APRN, RESULTS, TEST Practice [facility] [address] [place] [id number] [phone] Social History Tobacco Use Types Packs/Day Years Used Date Smoking Tobacco: Former Cigarettes 1 5 Quit : 07/21/1997 Alcohol Use Standard Drinks/Week Comments Yes 0 (1 standard drink = 0.6 oz pure alcoho l) on occasion Sex Assigned at Date Recorded Not on file documented as of this encounter Nursing Notes 10/13/2004 11:59 PM CDT >> ALBERT VIRGEN TueOct 14, 2004 9:16 AM Pt informed of results and requested a copy. Will pepper picker at front desk associate and sign a release of info. >> ALBERT VIRGEN TueOct 13, 2004 5:14 PM LM will call tomorrow. >> NANNETTE WHITLOCK TueOct 13, 2004 4:47 PM Minimal thickening or sclerosis or aortic valve without significant stenosis. Most likely related to murmur. >> NANNETTE WHITLOCK TueOct 13, 2004 4:13 PM ECHO results are as follows: >> ALBERT VIRGEN TueOct 13, 2004 11:41 AM please advise with results >> JUANCARLOS DONAHUE e Oct 13, 2004 10:31 AM Pt is calling for results of echo done at [facility] 10/02 Please call after 3:30 at home number documented in this encounter Plan of Treatment Not on filedocumented as of this encounter Visit Diagnoses Not on filedocumented in this encounter Care Teams Health Economist Relationship Specialty Start Date End Date Nannette Whitlock APRN, HOT KETTLE TENDER PCP - General 01/28/1999 02/10/06 [facility] [place] [address] documented as of this encounter
[2021-12-03 17:31] LABS: Albumin* 4.7 g/dL (3.3-5.0); Chloride* 99 mmol/L (96-114)
[2021-12-03 17:32] LABS: Potassium* 4.2 mmol/L (3.6-5.1); Sodium* 139 mmol/L (135-149)
[2021-12-03 17:34] LABS: Aspartate Amino Transferase* 45 U/L (12-35); Bilirubin Total* 0.3 mg/dL (0.1-1.5); Blood Urea Nitrogen* 15 mg/dL (5-24); Carbon Dioxide* 30 mmol/L (20-32); Cholesterol* 220 mg/dL (90-199); Creatinine* 0.7 mg/dL (0.5-1.5); Estimated Glomerular Filt Rate 117 ml/min; Glucose* 98 mg/dL (60-115); Total Protein* 7.6 g/dL (6.0-8.3)
[2021-12-03 17:35] LABS: Alanine Aminotransferase* 47 U/L (4-50); Alkaline Phosphatase* 80 U/L (40-150); Calcium* 9.6 mg/dL (8.4-10.6); HDL Cholesterol* 47 mg/dL (>=40); LDL Cholesterol Calculated 129 mg/dL (<100); Triglycerides* 218 mg/dL (40-149)
== END 2021-12-03 15:54 | disposition home or self-care (01) ==
PROVIDERS: PCP Family Medicine; Visit Provider Family Medicine
DX: Z00.00 Encounter for general adult medical examination without abnormal findings (principal); R53.83 Other fatigue; E66.01 Morbid (severe) obesity due to excess calories; R73.01 Impaired fasting glucose; I10 Essential (primary) hypertension
CPT/HCPCS: 80053; 80061; 84443

== ENCOUNTER 2022-03-08 20:56 | Outpatient (CLI) | payer BC, SELFPAY ==
--- NOTE | 2022-03-16 12:30 | W.PM.SLEEP ---
Sleep Study Details Details Interpreting Provider: Shine Mckeon MD Date of Sleep Study: 03/08/22 Sleep Study Details: STUDY TYPE:? Hospital-based with CPAP titration ? BMI:? 55.2 ORDERING PROVIDER:? Judah INDICATION:? Concerns about sleep apnea ? SLEEP SUMMARY:? Total sleep time 291 minutes, efficiency 60.3 arousal index 10.1 RESPIRATORY SUMMARY:? AHI 52.7 with little variation between supine and nonsupine sleep. There was no REM sleep seen in the diagnostic portion of the study Mean oxygen awake 93 asleep 91 minimum 76, 44.2 minutes oxygen between 80 and 88%, 0.4 minutes oxygen between 70 and 79% CPAP titration was performed to a pressure of 18 which decreased AHI to 3.8 and included REM stage sleep in the supine position PERIODIC LIMB MOVEMENTS OF SLEEP:? Index 14 index with arousal 0, post treatment there were no periodic limb CARDIAC:? Awake 87, asleep 79. No arrhythmias noted IMPRESSION:? Severe obstructive sleep apnea with successful CPAP titration to a pressure of 18 RECOMMENDATION: Initiate CPAP at a pressure of 18. If this is not tolerated well could consider bilevel.
== END 2022-03-08 20:57 | disposition home or self-care (01) ==
LOC: SLEEP 20:59
PROVIDERS: PCP Family Medicine; Visit Provider Family Medicine
DX: G47.33 Obstructive sleep apnea (adult) (pediatric) (principal)
CPT/HCPCS: 95811

== ENCOUNTER 2022-03-19 13:41 | Outpatient (CLI) | payer BC, SELFPAY ==
[2022-03-19 22:15] LABS: Chloride* 100 mmol/L (96-114); Sodium* 140 mmol/L (135-149)
[2022-03-19 22:16] LABS: Potassium* 4.5 mmol/L (3.6-5.1)
[2022-03-19 22:18] LABS: Carbon Dioxide* 32 mmol/L (20-32); Creatinine* 0.8 mg/dL (0.5-1.5); Estimated Glomerular Filt Rate 112 ml/min
[2022-03-19 22:19] LABS: Blood Urea Nitrogen* 15 mg/dL (5-24); Calcium* 9.3 mg/dL (8.4-10.6); Glucose* 121 mg/dL (60-115)
== END 2022-03-19 13:42 | disposition home or self-care (01) ==
LOC: FRMREF 13:41
PROVIDERS: PCP Family Medicine; Visit Provider Family Medicine
DX: I10 Essential (primary) hypertension (principal)
CPT/HCPCS: 80048

== ENCOUNTER 2022-05-28 07:31 | Outpatient (CLI) | payer BC, SELFPAY | END 2022-05-28 07:32 | disposition home or self-care (01) | LOC: NFLDREF 05-29 06:24 | PROVIDERS: PCP Family Medicine; Referring Provider Family Medicine; Visit Provider Family Medicine | DX: E78.5 Hyperlipidemia, unspecified (principal); R73.03 Prediabetes; I10 Essential (primary) hypertension | CPT/HCPCS: 80053; 80061 ==

== ENCOUNTER 2022-09-03 06:18 | Outpatient (CLI) | payer BC, SELFPAY ==
--- NOTE | 2022-09-03 06:44 | W.ANESCHARGE ---
Anesthesia Charges Start Date/Time Anesthesia Start Date: 09/03/22 Anesthesia Start Time: 07:00 Stop Date/Time Anesthesia Stop Date: 09/03/22 Anesthesia Stop Time: 07:35
--- NOTE | 2022-09-03 06:44 | PM.ANHP ---
HPI - Pre-Anesthesia History of Present Illness Time Seen by Provider: 06:50 Date Seen: 09/03/22 Date of service: 09/03/22 Source: patient and old records reviewed Review of Systems Status of ROS Reports: 6 or more systems reviewed and unremarkable except as noted in History and below [facility] Medical History Depression ?F32.A - Depression, unspecified (ICD-10) Severe obstructive sleep apnea (02/2022) ?G47.33 - Obstructive sleep apnea (adult) (pediatric) (ICD-10) Morbid obesity with BMI of 50.0-59.9, adult ?E66.01 - Morbid (severe) obesity due to excess calories (ICD-10) ?Z68.43 - Body mass index [BMI] 50.0-59.9, adult (ICD-10) Tingling of left upper extremity and left side of face ?R20.2 - Paresthesia of skin (ICD-10) Elevated liver function tests ?R79.89 - Other specified abnormal findings of blood chemistry (ICD-10) Anxiety ?F41.9 - Anxiety disorder, unspecified (ICD-10) Surgical History History of nevus excision (1993) ?Z98.890 - Other specified postprocedural states (ICD-10) ?Z87.2 - Personal history of diseases of the skin and subcutaneous tissue (ICD-10) History of appendectomy (1990) ?Z90.49 - Acquired absence of other specified parts of digestive tract (ICD-10) Family History Skin cancer Aunt Diabetes Maternal Grandmother Bipolar disorder Aunt Oral cancer Aunt Social History 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 Non smoker quit age 37, 10pack years Does not exercise Smoking Status: Former smoker Little interest or pleasure in doing things: several days Feeling down, depressed, or hopeless: not at all Meds Home Medications and Allergies Home Medications Medication Instructions Recorded Confirmed Type loratadine 10 mg tablet (Claritin) 10 mg PO QDAY 10/13/22 06/20/23 History Allergies Allergy/AdvReac Type Severity Reaction Status Date / Time No Known Allergies Allergy Unknown unknown Uncoded 08/10/22 09:02 Exam Const Documenting provider has reviewed patient's vital signs: yes Common normals: no apparent distress, oriented x3, healthy appearing, alert and well nourished General appearance: cooperative and comfortable Orientation/consciousness: Yes awake HENMT Common normals: normocephalic Head and scalp: normocephalic Neck & C-Spine Common normals: full ROM Chest Chest: symmetrical chest wall rise Resp Common normals: normal respiratory effort, no retractions, no use of accessory muscles and clear to auscultation bilaterally Auscultation: clear to auscultation bilaterally Cardio Common normals: regular rate, regular rhythm, S1 normal heart sound, S2 normal heart sound and no murmurs Rate: regular rate Rhythm: regular rhythm Heart sounds: S1 normal and S2 normal GI Inspection: central obesity Neuro Common normals: oriented x3 Sensorium/orientation: awake and alert Assessment and Plan Assessment and plan (1) Colonoscopy planned: Status: Acute Plan ok to proceed with colonoscopy and sedation
--- NOTE | 2022-09-03 07:36 | W.ANESCHARGE ---
Anesthesia Charges Start Date/Time Anesthesia Start Date: 09/03/22 Anesthesia Start Time: 07:00 Stop Date/Time Anesthesia Stop Date: 09/03/22 Anesthesia Stop Time: 07:35
== END 2022-09-03 06:19 | disposition home or self-care (01) ==
LOC: OP CLINIC 06:19
PROVIDERS: PCP Family Medicine; Visit Provider Internal Medicine
DX: Z12.11 Encounter for screening for malignant neoplasm of colon (principal); K63.5 Polyp of colon
CPT/HCPCS: 00811; 45380; 45385; 88305; J2704

== ENCOUNTER 2023-08-12 07:37 | Outpatient (CLI) | payer BC, SELFPAY ==
--- OUTSIDE RECORDS SUMMARY | 2023-08-15 14:57 | XMS_ITS | Encounter Summary ---
Author Organization [facility] Address [address] [place] [address] Care Team Providers Care Letterer Name Role Phone Jerrell Beckwith MD Primary Care Provider Unavail able Encounter Details Date Type Department Care Team (Late st Contact Info) Description 01/15/2014 Consent for Procedure/Treatme [facility] Practice [address] [place] [address] [place] [address] [place] [address] CONSENT FORM FOR VASECTOMY Social History Tobacco Use Types Packs/Day Years Used Date Smoking Tobacco: Former Cigarettes 1 5 0 07/21/1992 - 07/21/1997 Smokeless Tobacco: Never Alcohol Use Standard Drinks/Week Comments Yes 0 (1 standard drink = 0.6 oz pur e alcohol) on occasion Sex and Gender Information Value Date Recorded Sex Assigned at Not on file Gender Identity Not on file Sexual Orientation Not on file documented as of this encounter Plan of Treatment Not on file documented as of this encounter Visit Diagnoses Not on filedocumented in this encounter Care Teams Letterer Relationship Specialty Start Date End Date Jerrell Beckwith MD PCP - General 08/27/09 02/20/21 documented as of this encounter
--- OUTSIDE RECORDS SUMMARY | 2023-08-15 14:57 | XMS_ITS | Clinical Summary ---
Author Organization [facility] Address [address] [place] [address] Care Team Providers Care Dye Colorist Formulator Name Role Phone Unavailable Primary Care Provider Unavailabl e Source Comments You are receiving this document as you are listed as the primary care provider,follow-up provider, or the patient has been referred to you for consultation.This is in compliance with the Medicare and[facility] EHR Incentive Program,which states Providers who transition their patient to another setting of careor provider of care or refers their patient to another provider of care shouldprovide summary care record for each transition of care or referral. [facility] Allergies No known active allergies Medications Medication Sig Dispensed Refills Start Date End Date Status cholecalciferol (VITAMIN D) 2000 UNITS tablet Take 2,000 Units by mouth daily. Active Multiple Vitamins-Minerals (ONE-A-DAY [facility] OR) Active Active Problems Problem Noted Date Diagnosed Date Vitamin D deficiency 01/30/2013 Immunizations Name Administration Dates Next Due Influenza IIV4 (Quadrivalent ) 0.5mL (71692) 12/28/2016,01/30/2013 Td 02/20/1993 Td (7+ yrs) 09/29/2004 Tdap 01/30/2013 Varicella 01/27/1999(Deferred: Immune by Len porter) Family History Medical History Relation Name Comments Alcohol/Drug Abuse Father Glaucoma Mother Pre-glaucoma Obesity Mother Bipolar Disorder Maternal Aunt Diabetes, Type II Maternal Grandfather Cataract Maternal Grandmother Relation Name Status Comments Father Alive BY-1958 Mother Alive BY-8 Brother Alive BY-1986 Daughter Alive Maternal Aunt Maternal Grandfather Alive BY-1910 's; AODM Maternal Grandmother Alive BY-1909 's Paternal Grandfather Alive unknown Paternal Grandmother Alive [...] on file Sexual Orientation Not on file Last Filed Vital Signs Vital Sign Reading Time Taken Comments Blood Pressure 144/98 12/28/2016 10:44 AM MINIATURE SET CONSTRUCTOR Pulse 77 12/28/2016 10:44 AM MINIATURE SET CONSTRUCTOR Temperature 36.6 ??C (97.9 ??F) 12/28/2016 10:[address] Respiratory Rate 14 01/15/2014 10:13 AM MINIATURE SET CONSTRUCTOR Oxygen Saturation - - Inhaled Oxygen Concentration - - Weight 154 kg (339 lb 6.4 oz) 12/28/2016 10:44 A M MINIATURE SET CONSTRUCTOR Height 181.6 cm (5' 11.5) 12/28/2016 10:[address] Body Mass Index 46.68 12/28/2016 10:44 AM MINIATURE SET CONSTRUCTOR Plan of Treatment Health Maintenance Due Date Last Done Comments Colon Cancer Screening Plan Due 1975 Hep C Screening (Preventive Services) 1975 HIV Screening (Preventive Services) 1993 Adult Preventive Visit 12/28/2017 7, 01/30/2013, 09/05/2009, Additional history exists Cholesterol 12/28/2021 12/28/2016, 01/21, 09/02/2009, Additional history exists COVID-19 Vaccine (2022- season) 2022 DTaP/Tdap/Td (3 - Tdap) 01/30/2023 01/31/20 13, 09/29/2004, 02/20/1993 Influenza (Season Ended) 2023 12/28/2016, 01/21 Zoster/Shingles (1 of 2) 05/11/2027 HepA Aged Out No longer eligi ble based on patient's age to complete this topic Hib Aged Out No longer eligi ble based on patient's age to complete this topic IPV (Polio) Aged Out No longer eligi ble based on patient's age to complete this topic MCV4 Aged Out No longer eligi ble based on patient's age to complete this topic Pneumococcal Aged Out No longer eligi ble based on patient's age to complete this topic Procedures Procedure Name Priority Date/Time Associated Diagnosis Comments LIPID PANEL & DIRECT LDL (IF NEEDED) Routine 12/28/2016 11:13 AM MINIATURE SET CONSTRUCTOR Routine health maintenance from Last 3 Months or Most Recently Relevant to Health Maintenance Results * (ABNORMAL) Lipid Panel and Direct LDL(If Needed) (12/28/2016 11:13 AM MINIATURE SET CONSTRUCTOR) Hours Fasting 12 hours [facility] Cholesterol 218(H) 0 - 199 mg/dl [facility] Triglyceride 162(H) 0 - 149 mg/dl [facility] HDL 41 >40 mg/dl [facility] LDL, Calc. 145(H) 0 - 129 mg/dl [facility] Non HDL Chol, Calc 177 mg/dl [facility] 12/28/2016 11:1 3 AM MINIATURE SET CONSTRUCTOR 12/28/2016 11:14 AM MINIATURE SET CONSTRUCTOR Narrative [facility] - 12/28/2016 4:38 PM MINIATURE SET CONSTRUCTOR Performed at [facility], [address] [place] [address] ??[phone] Mirian Ayala MD LAB_1 [facility] [phone] from Last 3 Months or Most Recently Relevant to Health Maintenance Advance Directives * No Code Status (Latest Code Status on File) Date Activated Date Inactivated Comments 09/29/2004 3:51 PM 09/29/2004 3:51 PM
== END 2023-08-12 07:38 | disposition home or self-care (01) ==
LOC: NFLDREF 08-15 14:55
PROVIDERS: PCP Family Medicine; Referring Provider Family Medicine; Visit Provider Family Medicine
DX: Z00.00 Encounter for general adult medical examination without abnormal findings (principal); E78.5 Hyperlipidemia, unspecified; I10 Essential (primary) hypertension; R73.03 Prediabetes; R53.83 Other fatigue; R79.89 Other specified abnormal findings of blood chemistry; E66.01 Morbid (severe) obesity due to excess calories; R35.0 Frequency of micturition
CPT/HCPCS: 80053; 80061; 84153

== ENCOUNTER 2023-08-17 10:39 | Outpatient (CLI) | payer BC, SELFPAY ==
--- OUTSIDE RECORDS SUMMARY | 2023-08-17 10:42 | XMS_ITS | Clinical Summary ---
Author Organization [facility] Address [address] [place] [address] Care Team Providers Care Nurse Advisor Name Role Phone Unavailable Primary Care Provider Unavailabl e Source Comments You are receiving this document as you are listed as the primary care provider,follow-up provider, or the patient has been referred to you for consultation.This is in compliance with the Medicare and[facility] Incentive [facility],which states Providers who [...] Next Due Influenza IIV4 (Quadrivalent ) 0.5mL (48139) 12/28/2016,01/30/2013 Td 02/20/1993 Td (7+ yrs) 09/29/2004 [...] Comments Blood Pressure 144/98 12/28/2016 10:44 AM COOKING INSTRUCTOR Pulse 77 12/28/2016 10:44 AM COOKING INSTRUCTOR Temperature 36.6 ??C (97.9 ??F) 12/28/2016 10:[address] Respiratory Rate 14 01/15/2014 10:13 AM COOKING INSTRUCTOR Oxygen Saturation - - Inhaled Oxygen Concentration - - Weight 154 kg (339 lb 6.4 oz) 12/28/2016 10:44 A M COOKING INSTRUCTOR Height 181.6 cm (5' 11.5) 12/28/2016 10:[address] Body Mass Index 46.68 12/28/2016 10:44 AM COOKING INSTRUCTOR Plan of Treatment Health Maintenance Due [...] LDL (IF NEEDED) Routine 12/28/2016 11:13 AM COOKING INSTRUCTOR Routine health maintenance from Last 3 Months or Most Recently Relevant to Health Maintenance Results * (ABNORMAL) Lipid Panel and Direct LDL(If Needed) (12/28/2016 11:13 AM COOKING INSTRUCTOR) Hours Fasting 12 hours [facility] Cholesterol 218(H) 0 - 199 mg/dl [facility] Triglyceride 162(H) 0 - 149 mg/dl [facility] HDL 41 >40 mg/dl [facility] LDL, Calc. 145(H) 0 - 129 mg/dl [facility] Non HDL Chol, Calc 177 mg/dl [facility] 12/28/2016 11:1 3 AM COOKING INSTRUCTOR 12/28/2016 11:14 AM COOKING INSTRUCTOR Narrative [facility] - 12/28/2016 4:38 PM COOKING INSTRUCTOR Performed at [facility], [address] [place] [address] ??[phone] Mirian Ayala MD LAB_1 [facility] [phone] from Last 3 Months or Most Recently Relevant to Health Maintenance Advance Directives * No Code Status (Latest Code Status on File) Date Activated Date Inactivated Comments 09/29/2004 3:51 PM 09/29/2004 3:51 PM
--- OUTSIDE RECORDS SUMMARY | 2023-08-17 10:42 | XMS_ITS | Encounter Summary ---
[facility] Organization [facility] Address [address] [place] [address] Care Team Providers Care Factorer Name Role Phone Jerrell Beckwith MD Primary Care Provider Unavail able Encounter Details Date Type Department Care Team (Late st Contact Info) Description 01/15/2014 Consent for Procedure/Treatme [facility] [address] [place] [address] [place] [address] [place] [address] CONSENT FORM FOR VASECTOMY Social History Tobacco [...] on filedocumented in this encounter Care Teams Factorer Relationship Specialty Start Date End Date Jerrell Beckwith MD PCP - General 08/27/09 02/20/21 documented as of this encounter
== END 2023-08-17 10:40 | disposition home or self-care (01) ==
LOC: NFLDREF 10:40
PROVIDERS: PCP Family Medicine; Visit Provider Family Medicine
DX: Z00.00 Encounter for general adult medical examination without abnormal findings (principal); R35.0 Frequency of micturition; R79.89 Other specified abnormal findings of blood chemistry
CPT/HCPCS: 87086

== ENCOUNTER 2024-09-11 07:33 | Outpatient (CLI) | payer BC, SELFPAY | END 2024-09-11 07:34 | disposition home or self-care (01) | LOC: NFLDREF 09-12 04:09 | PROVIDERS: PCP Family Medicine; Referring Provider Family Medicine; Visit Provider Family Medicine | DX: E55.9 Vitamin D deficiency, unspecified (principal); I10 Essential (primary) hypertension; E78.2 Mixed hyperlipidemia; R73.03 Prediabetes; R53.83 Other fatigue; R79.89 Other specified abnormal findings of blood chemistry | CPT/HCPCS: 80053; 80061; 84443 ==